=== PATIENT | female | born 1950 | race Asian ===

== ENCOUNTER 2017-10-20 16:36 | Inpatient (IN) | payer MEDICARE, OTHER ==
[~2017-10-20] VITALS: Ht 152.4 cm; Wt 94.9 kg
[~2017-10-20 16:36] MED LIST: ACET-66 PO; ADV500 IH; ALBU0.21 IH; ALBU8.5H8 IH; ALEN70TA2 PO; ASPI-1198 PO; ATOR-2 PO; BISA5TAB96 PO; CARV3.1262 PO; CEFU250T58 PO; CHOL10002 PO; CLOP75 PO; DEXT15LI4 PO; DICL2100G TP; DSSL PO; DULO20CA30 PO; FURO40 PO; FURO40TA5 PO; GABA-531 PO; IBUP-1506 PO; INSLAN SQ; IPRA4AER IH; LORA10TA7 PO; METF10002 PO; MOME17N NASAL; MONT10TA21 PO; NITR.4 SL; NYST30CR9 TP; OMEP20CA4 PO; POTA10TA10 PO; RANO500T3 PO; TIOT185 IH; TRI2560LO TP; [UNRECOGNIZED DRUG - CODE] TP
[2017-10-20 16:53] LABS: GLUCOSE,POINT OF CARE 374 MG/DL (70-110)
[2017-10-20] MEDS ORDERED: LIDO700A15 TP (16:55)
[2017-10-20] MEDS ORDERED: HYDR10TA31 PO (16:55)
[2017-10-20] MEDS ORDERED: PRED10 PO (16:55)
[2017-10-20] MEDS ORDERED: TOPI25 PO (16:55)
[2017-10-20] MEDS ORDERED: LOSA50TA37 PO (16:55)
[2017-10-20] MEDS ORDERED: LINA72CA PO (16:55)
[2017-10-20 18:26] LABS: BASOPHILS % (AUTO) 0.3 % (0.0-2.0); EOSINOPHILS % (AUTO) 0 % (1.0-6.0); HEMATOCRIT 34.1 % (36-46); HEMOGLOBIN 11.3 g/dL (12.0-16.0); LYMPHOCYTES % (AUTO) 10.4 % (22.0-44.0); MEAN CORPUSCULAR HEMOGLOBIN 30.4 pg (26.0-34.0); MEAN CORPUSCULAR HGB CONC 33.3 G/dL (31.0-37.0); MEAN CORPUSCULAR VOLUME 91 fL (80-100); MONOCYTES # (AUTO) 0.9 K/uL (0.1-1.0); NEUTROPHILS # (AUTO) 7.3 K/uL (1.8-7.7); NEUTROPHILS % (AUTO) 79.3 % (40.0-70.0); PLATELET COUNT (AUTO) 367 K/uL (150-450); RED BLOOD CELL COUNT(AUTO) 3.73 MIL/uL (4.00-5.20); RED CELL DISTRIBUTION WIDTH 13.2 % (11.5-14.5)
[2017-10-20 18:39] LABS: ANION GAP 10 mmol/L (8-16); CALCIUM, TOTAL 8.8 mg/dL (8.8-10.5); CARBON DIOXIDE 25 mmol/L (22-29); CHLORIDE 97 mmol/L (98-107); CREATININE 1.36 mg/dL (0.60-1.30); GLOMERULAR FILTR. RATE CALC 39 mL/min (>60); GLUCOSE,RANDOM 377 mg/dL (70-110); POTASSIUM 4.3 mmol/L (3.5-5.1); SODIUM SERUM 132 mmol/L (136-145); UREA NITROGEN, BLOOD 27 mg/dL (7-18)
[2017-10-20 19:08] LABS: ALANINE AMINOTRANSFERASE 25 U/L (12-78); ALBUMIN 3.1 g/dL (3.4-5.0); ALKALINE PHOSPHATASE 100 U/L (46-116); ASPARTATE AMINOTRANSFERASE 18 U/L (15-37); BILIRUBIN,TOTAL 0.3 mg/dL (0.1-1.0); CREATINE KINASE MB 1.5 ng/mL (0-5); CREATINE KINASE, TOTAL 90 U/L (26-192); TOTAL PROTEIN, SERUM 7.4 g/dL (6.4-8.2)
[2017-10-20] MEDS ORDERED: IPRATROPIUM BROMIDE 0.5 MG/2.5 ML NEB SOLUTION NEB ONE (21:00)
[2017-10-20] MEDS ORDERED: ALBUTEROL SULFATE 5 MG/ML 20 ML NEB SOLN [BULK] NEB ONE (21:00)
[2017-10-20] MEDS ORDERED: INSULIN REGULAR, HUMAN 100 UNITS/ML IVP ONE (21:00)
[2017-10-20] MEDS ORDERED: SODIUM CHLORIDE 0.9% 1,000 ML IV ONE ×2 (21:00→22:45)
[2017-10-20 21:18] LABS: GLUCOSE,POINT OF CARE 273 MG/DL (70-110)
[2017-10-20 21:29] LABS: APPEARANCE,URINE CLEAR (CLEAR); BILIRUBIN,URINE NEGATIVE (NEGATIVE); GLUCOSE, URINE (UA) 500 mg/dL (NEGATIVE); KETONES,URINE NEGATIVE (NEGATIVE); LEUKOCYTE ESTERASE ,URINE NEGATIVE (NEGATIVE); NITRATE,URINE NEGATIVE (NEGATIVE); OCCULT BLOOD,URINE NEGATIVE (NEGATIVE); PROTEIN,URINE NEGATIVE (NEGATIVE); UROBILINOGEN,URINE 0.2 mg/dL (<=1.0)
[2017-10-20] MEDS ORDERED: CefTRIAXone 1 GM/DEXTROSE 50 ML IV ONE (21:45)
[2017-10-20] MEDS ORDERED: AZITHROMYCIN 500 MG/NS 250 ML IV ONE (21:45)
[2017-10-20 21:47] LABS: BACTERIA,URINE None Seen /HPF (None Seen); RBC,URINE None Seen /HPF (0-2); RENAL EPITHELIAL CELLS,URINE Few /LPF (None Seen); SQUAMOUS EPITHELIAL CELL,UR Few /LPF (None Seen)
[2017-10-20 22:04] LABS: LACTIC ACID 2.8 mmol/L (0.4-2.0)
[2017-10-20] MEDS ORDERED: 0.9% SODIUM CHLORIDE 5 ML NEB SOLUTION NEB ONE (22:32)
[2017-10-20] MEDS: IPRATROPIUM BROMIDE 0.5 MG/2.5 ML NEB SOLUTION NEB SCH (22:42)
[2017-10-20] MEDS: ALBUTEROL SULFATE 2.5 MG/0.5 ML NEB SOLUTION NEB SCH (22:42)
[2017-10-20] MEDS ORDERED: ONDANSETRON HCL 4 MG/2 ML VIAL IVP PRN (22:45)
[2017-10-20] MEDS ORDERED: 0.9% SODIUM CHLORIDE 10 ML SYRINGE IVP PRN (22:45)
[2017-10-20] MEDS ORDERED: ACETAMINOPHEN 325 MG TABLET PO PRN (22:45)
[2017-10-20 22:59] LABS: INFLUENZA TYPE A NEGATIVE FOR TYPE A (NEGATIVE); INFLUENZA TYPE B NEGATIVE FOR TYPE B (NEGATIVE)
[2017-10-21] MEDS: IPRATROPIUM BROMIDE 0.5 MG/2.5 ML NEB SOLUTION NEB SCH ×2 (03:07→07:34)
[2017-10-21] MEDS: ALBUTEROL SULFATE 2.5 MG/0.5 ML NEB SOLUTION NEB SCH ×2 (03:07→07:34)
[2017-10-21 05:57] LABS: GLUCOSE,POINT OF CARE 192 MG/DL (70-110)
[2017-10-21 06:36] VITALS: BP 120/68
[2017-10-21] MEDS ORDERED: IPRATROPIUM BROMIDE 0.5 MG/2.5 ML NEB SOLUTION NEB ONE ×3 (07:32→17:00)
[2017-10-21] MEDS ORDERED: ALBUTEROL SULFATE 2.5 MG/0.5 ML NEB SOLUTION NEB ONE ×3 (07:32→17:15)
[2017-10-21] MEDS ORDERED: AZITHROMYCIN 500 MG/NS 250 ML IV STA (08:57)
[2017-10-21] MEDS ORDERED: ACETAMINOPHEN 325 MG TABLET PO PRN (09:00)
[2017-10-21] MEDS ORDERED: ALBUTEROL SULFATE 2.5 MG/0.5 ML NEB SOLUTION NEB PRN (09:00)
[2017-10-21] MEDS ORDERED: IPRATROPIUM BROMIDE 0.5 MG/2.5 ML NEB SOLUTION NEB PRN (09:00)
[2017-10-21] MEDS ORDERED: MORPHINE SULFATE 2 MG/ML SYRINGE IVP PRN (09:00)
[2017-10-21] MEDS ORDERED: ENOXAPARIN SODIUM 40 MG/0.4 ML PF SYRINGE SQ SCH (09:00)
[2017-10-21] MEDS ORDERED: CefTRIAXone 1 GM/DEXTROSE 50 ML IV SCH (09:00)
[2017-10-21 09:45] LABS: BASOPHILS % (AUTO) 0.7 % (0.0-2.0); EOSINOPHILS % (AUTO) 0 % (1.0-6.0); HEMATOCRIT 31.7 % (36-46); HEMOGLOBIN 10.7 g/dL (12.0-16.0); LYMPHOCYTES # (AUTO) 1.3 K/uL (1.0-4.8); LYMPHOCYTES % (AUTO) 15.1 % (22.0-44.0); MEAN CORPUSCULAR HEMOGLOBIN 30.7 pg (26.0-34.0); MEAN CORPUSCULAR HGB CONC 33.7 G/dL (31.0-37.0); MEAN CORPUSCULAR VOLUME 91 fL (80-100); MONOCYTES # (AUTO) 0.9 K/uL (0.1-1.0); MONOCYTES % (AUTO) 10.8 % (2.0-9.0); NEUTROPHILS # (AUTO) 6.3 K/uL (1.8-7.7); NEUTROPHILS % (AUTO) 73.4 % (40.0-70.0); PLATELET COUNT (AUTO) 340 K/uL (150-450); RED BLOOD CELL COUNT(AUTO) 3.48 MIL/uL (4.00-5.20); RED CELL DISTRIBUTION WIDTH 13.5 % (11.5-14.5)
[2017-10-21 09:52] LABS: INR 1.1 (0.9-1.1); PROTHROMBIN TIME 11.4 SEC (9.4-11.6)
[2017-10-21 10:03] LABS: ALBUMIN 2.7 g/dL (3.4-5.0); BILIRUBIN,TOTAL 0.2 mg/dL (0.1-1.0); C-REACTIVE PROTEIN QUANT 1.21 mg/dL (0.00-0.30); CALCIUM, TOTAL 8.1 mg/dL (8.8-10.5); CREATININE 1.1 mg/dL (0.60-1.30); TOTAL PROTEIN, SERUM 6.6 g/dL (6.4-8.2)
[2017-10-21] MEDS: ENOXAPARIN SODIUM 40 MG/0.4 ML PF SYRINGE SQ SCH (10:05)
[2017-10-21 10:19] VITALS: BP 129/56
[2017-10-21 10:21] LABS: POTASSIUM 3.5 mmol/L (3.5-5.1)
[2017-10-21] MEDS ORDERED: MethylPREDNISolone SOD SUCC 125 MG/2 ML VIAL IVP ONE (10:45)
[2017-10-21 10:56] LABS: ERYTHROCYTE SEDIMENTATION RATE 62 MM/HR (0-20)
[2017-10-21] MEDS ORDERED: LINA145C PO (11:00)
[2017-10-21] MEDS ORDERED: DSS100 PO (11:00)
[2017-10-21] MEDS ORDERED: NITROGLYCERIN 0.4 MG SUBLINGUAL TABLET #25 SL PRN (12:00)
[2017-10-21] MEDS ORDERED: DEXTROSE 50%-WATER 25 GM/50 ML SYRINGE IVP PRN (12:00)
[2017-10-21 12:33] LABS: GLUCOSE,POINT OF CARE 243 MG/DL (70-110)
[2017-10-21 14:19] VITALS: BP 129/70
[2017-10-21] MEDS: DICLOFENAC SODIUM 1% 100 GM GEL [2GM] TP SCH ×3 (14:25→20:42)
[2017-10-21] MEDS: HYDROCODONE/ACETAMINOPHEN 5-325 MG TABLET PO PRN ×2 (14:43→18:59)
[2017-10-21] MEDS: IPRATROPIUM BROMIDE 0.5 MG/2.5 ML NEB SOLUTION NEB PRN (15:28)
[2017-10-21] MEDS: ALBUTEROL SULFATE 2.5 MG/0.5 ML NEB SOLUTION NEB PRN (15:28)
[2017-10-21] MEDS ORDERED: 0.9% SODIUM CHLORIDE 5 ML NEB SOLUTION NEB ONE (17:06)
[2017-10-21 18:19] VITALS: BP 129/62
[2017-10-21 18:42] LABS: GLUCOSE,POINT OF CARE 387 MG/DL (70-110)
[2017-10-21] MEDS: MetFORMIN HCL 500 MG TABLET PO SCH (18:57)
[2017-10-21] MEDS: GuaiFENesin/D-METHORPHAN [SUGAR-FREE] 200-20MG/10 ML SYRUP UDCUP PO PRN (18:58)
[2017-10-21] MEDS: MethylPREDNISolone SOD SUCC 125 MG/2 ML VIAL IVP SCH (19:10)
[2017-10-21] MEDS: INSULIN ASPART 100 UNITS/ML SQ PRN (19:12)
[2017-10-21] MEDS: CefTRIAXone 1 GM/DEXTROSE 50 ML IV SCH (20:40)
[2017-10-21] MEDS: CARVEDILOL 3.125 MG TABLET PO SCH (20:40)
[2017-10-21] MEDS: DOCUSATE SODIUM 100 MG CAPSULE PO SCH (20:40)
[2017-10-21] MEDS: GABAPENTIN 300 MG CAPSULE PO SCH (20:41)
[2017-10-21] MEDS: RANOLAZINE 500 MG SR TABLET PO SCH (20:41)
[2017-10-21] MEDS: TOPIRAMATE 25 MG TABLET PO SCH (20:41)
[2017-10-21] MEDS: INSULIN GLARGINE,HUM.REC.ANLOG 100 UNITS/ML SQ SCH (21:36)
[2017-10-21] MEDS: AZITHROMYCIN 500 MG/NS 250 ML IV SCH (21:38)
[2017-10-21 21:43] LABS: GLUCOSE,POINT OF CARE 422 MG/DL (70-110)
[2017-10-21] MEDS ORDERED: INSULIN ASPART 100 UNITS/ML SQ ONE (22:00)
[2017-10-21 22:31] VITALS: BP 144/56
[2017-10-22] VITALS (8 sets, daily range): BP systolic 110–149; BP diastolic 40–55
[2017-10-22] MEDS: MethylPREDNISolone SOD SUCC 125 MG/2 ML VIAL IVP SCH ×4 (00:58→20:42)
[2017-10-22] MEDS: GuaiFENesin/D-METHORPHAN [SUGAR-FREE] 200-20MG/10 ML SYRUP UDCUP PO PRN (01:39)
[2017-10-22] MEDS: LINACLOTIDE 145 MCG CAPSULE PO SCH (06:31)
[2017-10-22 08:30] LABS: BASOPHILS # (AUTO) 0.01 K/uL (0.00-0.20); BASOPHILS % (AUTO) 0.2 % (0.0-2.0); EOSINOPHILS % (AUTO) 0 % (1.0-6.0); HEMOGLOBIN 10.8 g/dL (12.0-16.0); LYMPHOCYTES # (AUTO) 0.8 K/uL (1.0-4.8); LYMPHOCYTES % (AUTO) 11.6 % (22.0-44.0); MEAN CORPUSCULAR HEMOGLOBIN 30.2 pg (26.0-34.0); MEAN CORPUSCULAR HGB CONC 32.7 G/dL (31.0-37.0); MEAN CORPUSCULAR VOLUME 92 fL (80-100); MONOCYTES # (AUTO) 0.3 K/uL (0.1-1.0); MONOCYTES % (AUTO) 3.7 % (2.0-9.0); NEUTROPHILS # (AUTO) 6.1 K/uL (1.8-7.7); NEUTROPHILS % (AUTO) 84.5 % (40.0-70.0); PLATELET COUNT (AUTO) 338 K/uL (150-450); RED BLOOD CELL COUNT(AUTO) 3.58 MIL/uL (4.00-5.20); RED CELL DISTRIBUTION WIDTH 13.1 % (11.5-14.5)
[2017-10-22 08:36] LABS: CALCIUM, TOTAL 8.6 mg/dL (8.8-10.5); CREATININE 1.02 mg/dL (0.60-1.30); MAGNESIUM 2.4 mg/dL (1.80-2.40); POTASSIUM 4.3 mmol/L (3.5-5.1)
[2017-10-22] MEDS: INSULIN GLARGINE,HUM.REC.ANLOG 100 UNITS/ML SQ SCH ×2 (09:00→22:32)
[2017-10-22 09:18] LABS: GLUCOSE,POINT OF CARE 275 MG/DL (70-110)
[2017-10-22] MEDS: TIOTROPIUM BROMIDE 18 MCG/INH HANDIHALER [5] IH SCH (09:57)
[2017-10-22] MEDS: FLUTICASONE/VILANTEROL 100-25 MCG/INH INHALER [14] IH SCH (09:57)
[2017-10-22] MEDS: MOMETASONE FUROATE 50 MCG/SPRAY 17 GM NASAL SPRAY NASAL SCH (09:58)
[2017-10-22] MEDS: RANOLAZINE 500 MG SR TABLET PO SCH (10:00)
[2017-10-22] MEDS: CARVEDILOL 3.125 MG TABLET PO SCH ×2 (10:01→22:28)
[2017-10-22] MEDS: MONTELUKAST SODIUM 10 MG TABLET PO SCH (10:02)
[2017-10-22] MEDS: MetFORMIN HCL 500 MG TABLET PO SCH ×2 (10:02→17:33)
[2017-10-22] MEDS: CLOPIDOGREL BISULFATE 75 MG TABLET PO SCH (10:03)
[2017-10-22] MEDS: FUROSEMIDE 40 MG TABLET PO SCH (10:03)
[2017-10-22] MEDS: LOSARTAN POTASSIUM 50 MG TABLET PO SCH (10:05)
[2017-10-22] MEDS: GABAPENTIN 300 MG CAPSULE PO SCH (10:05)
[2017-10-22] MEDS: HydrALAZINE HCL 10 MG TABLET PO SCH (10:06)
[2017-10-22] MEDS: DULoxetine HCL 20 MG CAPSULE PO SCH (10:06)
[2017-10-22] MEDS: ATORVASTATIN CALCIUM 40 MG TABLET PO SCH (10:06)
[2017-10-22] MEDS: DOCUSATE SODIUM 100 MG CAPSULE PO SCH ×2 (10:07→22:29)
[2017-10-22] MEDS: ASPIRIN 81 MG CHEWABLE TABLET PO SCH (10:07)
[2017-10-22] MEDS: LIDOCAINE HCL 5% TRANSDERMAL PATCH TD SCH (10:09)
[2017-10-22] MEDS: DICLOFENAC SODIUM 1% 100 GM GEL [2GM] TP SCH ×4 (10:14→22:41)
[2017-10-22] MEDS: ENOXAPARIN SODIUM 40 MG/0.4 ML PF SYRINGE SQ SCH (10:16)
[2017-10-22 12:48] LABS: GLUCOSE,POINT OF CARE 345 MG/DL (70-110)
[2017-10-22 16:02] LABS: GLUCOSE,POINT OF CARE 347 MG/DL (70-110)
[2017-10-22] MEDS: INSULIN ASPART 100 UNITS/ML SQ PRN (16:03)
[2017-10-22 17:17] LABS: GLUCOSE,POINT OF CARE 246 MG/DL (70-110)
[2017-10-22 21:33] LABS: GLUCOSE,POINT OF CARE 198 MG/DL (70-110)
[2017-10-22] MEDS: TOPIRAMATE 25 MG TABLET PO SCH (22:28)
[2017-10-22] MEDS: -LIDODERM PATCH NOTE- MISC SCH (22:29)
[2017-10-22] MEDS: AZITHROMYCIN 500 MG/NS 250 ML IV SCH (22:41)
[2017-10-22] MEDS: CefTRIAXone 1 GM/DEXTROSE 50 ML IV SCH (22:41)
[2017-10-23] VITALS (7 sets, daily range): BP systolic 103–154; BP diastolic 44–80
[2017-10-23] MEDS: GABAPENTIN 300 MG CAPSULE PO SCH ×3 (00:01→23:38)
[2017-10-23] MEDS: RANOLAZINE 500 MG SR TABLET PO SCH ×2 (00:01→11:09)
[2017-10-23] MEDS: MethylPREDNISolone SOD SUCC 125 MG/2 ML VIAL IVP SCH ×4 (00:30→19:40)
[2017-10-23] MEDS: GuaiFENesin/D-METHORPHAN [SUGAR-FREE] 200-20MG/10 ML SYRUP UDCUP PO PRN (00:36)
[2017-10-23] MEDS ORDERED: 0.9% SODIUM CHLORIDE 5 ML NEB SOLUTION NEB ONE (01:33)
[2017-10-23] MEDS: IPRATROPIUM BROMIDE 0.5 MG/2.5 ML NEB SOLUTION NEB PRN ×4 (01:37→23:48)
[2017-10-23] MEDS: ALBUTEROL SULFATE 2.5 MG/0.5 ML NEB SOLUTION NEB PRN ×4 (01:38→23:48)
[2017-10-23 06:21] LABS: BASOPHILS % (AUTO) 0.1 % (0.0-2.0); EOSINOPHILS % (AUTO) 0 % (1.0-6.0); HEMATOCRIT 32.5 % (36-46); HEMOGLOBIN 10.9 g/dL (12.0-16.0); LYMPHOCYTES # (AUTO) 0.9 K/uL (1.0-4.8); LYMPHOCYTES % (AUTO) 10.4 % (22.0-44.0); MEAN CORPUSCULAR HEMOGLOBIN 30.4 pg (26.0-34.0); MEAN CORPUSCULAR HGB CONC 33.6 G/dL (31.0-37.0); MEAN CORPUSCULAR VOLUME 90 fL (80-100); MONOCYTES # (AUTO) 0.3 K/uL (0.1-1.0); MONOCYTES % (AUTO) 3.8 % (2.0-9.0); NEUTROPHILS # (AUTO) 7.6 K/uL (1.8-7.7); PLATELET COUNT (AUTO) 348 K/uL (150-450); RED CELL DISTRIBUTION WIDTH 13.3 % (11.5-14.5)
[2017-10-23 06:38] LABS: CALCIUM, TOTAL 8.3 mg/dL (8.8-10.5); CREATININE 1.19 mg/dL (0.60-1.30)
[2017-10-23] MEDS: LINACLOTIDE 145 MCG CAPSULE PO SCH (06:38)
[2017-10-23 06:44] LABS: NEUTROPHILS % (AUTO) 85.7 % (40.0-70.0)
[2017-10-23 07:02] LABS: GLUCOSE,POINT OF CARE 257 MG/DL (70-110)
[2017-10-23] MEDS: INSULIN ASPART 100 UNITS/ML SQ PRN ×2 (07:30→11:15)
[2017-10-23] MEDS: HydrALAZINE HCL 10 MG TABLET PO SCH (09:00)
[2017-10-23] MEDS: DOCUSATE SODIUM 100 MG CAPSULE PO SCH ×2 (09:00→23:38)
[2017-10-23 09:52] LABS: GLUCOSE,POINT OF CARE 268 MG/DL (70-110)
[2017-10-23] MEDS: MONTELUKAST SODIUM 10 MG TABLET PO SCH (10:58)
[2017-10-23] MEDS: DULoxetine HCL 20 MG CAPSULE PO SCH (10:58)
[2017-10-23] MEDS: TIOTROPIUM BROMIDE 18 MCG/INH HANDIHALER [5] IH SCH ×2 (10:59→11:05)
[2017-10-23] MEDS: LOSARTAN POTASSIUM 50 MG TABLET PO SCH (10:59)
[2017-10-23] MEDS: CARVEDILOL 3.125 MG TABLET PO SCH ×2 (11:01→23:38)
[2017-10-23] MEDS: ASPIRIN 81 MG CHEWABLE TABLET PO SCH (11:01)
[2017-10-23] MEDS: ATORVASTATIN CALCIUM 40 MG TABLET PO SCH (11:02)
[2017-10-23] MEDS: MetFORMIN HCL 500 MG TABLET PO SCH ×2 (11:03→19:22)
[2017-10-23] MEDS: CLOPIDOGREL BISULFATE 75 MG TABLET PO SCH (11:04)
[2017-10-23] MEDS: FUROSEMIDE 40 MG TABLET PO SCH (11:04)
[2017-10-23] MEDS: MOMETASONE FUROATE 50 MCG/SPRAY 17 GM NASAL SPRAY NASAL SCH (11:05)
[2017-10-23] MEDS: DICLOFENAC SODIUM 1% 100 GM GEL [2GM] TP SCH ×3 (11:05→16:30)
[2017-10-23] MEDS: FLUTICASONE/VILANTEROL 100-25 MCG/INH INHALER [14] IH SCH (11:05)
[2017-10-23] MEDS: LIDOCAINE HCL 5% TRANSDERMAL PATCH TD SCH (11:06)
[2017-10-23] MEDS: INSULIN GLARGINE,HUM.REC.ANLOG 100 UNITS/ML SQ SCH ×2 (11:14→23:57)
[2017-10-23] MEDS: ENOXAPARIN SODIUM 40 MG/0.4 ML PF SYRINGE SQ SCH (11:44)
[2017-10-23 11:53] LABS: GLUCOSE,POINT OF CARE 211 MG/DL (70-110)
[2017-10-23 17:53] LABS: GLUCOSE,POINT OF CARE 167 MG/DL (70-110)
[2017-10-23] MEDS: BENZONATATE 100 MG CAPSULE PO SCH (19:39)
[2017-10-23 20:23] LABS: GLUCOSE,POINT OF CARE 249 MG/DL (70-110)
[2017-10-23] MEDS: -LIDODERM PATCH NOTE- MISC SCH (21:00)
[2017-10-23] MEDS: BUDESONIDE 0.5 MG/2 ML NEB SOLUTION NEB SCH (21:00)
[2017-10-24] MEDS: TOPIRAMATE 25 MG TABLET PO SCH ×2 (00:19→23:31)
[2017-10-24] MEDS: DICLOFENAC SODIUM 1% 100 GM GEL [2GM] TP SCH ×5 (00:19→23:44)
[2017-10-24] MEDS: MethylPREDNISolone SOD SUCC 125 MG/2 ML VIAL IVP SCH ×5 (00:20→23:32)
[2017-10-24] MEDS ORDERED: SODIUM CHLORIDE 0.9% 250 ML IV ONE (00:36)
[2017-10-24] MEDS: RANOLAZINE 500 MG SR TABLET PO SCH ×3 (00:38→21:25)
[2017-10-24] MEDS: AZITHROMYCIN 500 MG/NS 250 ML IV SCH ×2 (00:48→22:58)
[2017-10-24] MEDS: BENZONATATE 100 MG CAPSULE PO SCH ×4 (02:58→23:50)
[2017-10-24] MEDS: CefTRIAXone 1 GM/DEXTROSE 50 ML IV SCH ×2 (02:59→21:17)
[2017-10-24 04:13] VITALS: BP 139/60
[2017-10-24] MEDS: IPRATROPIUM BROMIDE 0.5 MG/2.5 ML NEB SOLUTION NEB PRN ×5 (04:13→20:15)
[2017-10-24] MEDS: ALBUTEROL SULFATE 2.5 MG/0.5 ML NEB SOLUTION NEB PRN ×5 (04:13→20:15)
[2017-10-24] MEDS: INSULIN ASPART 100 UNITS/ML SQ PRN ×2 (06:24→18:34)
[2017-10-24 07:21] LABS: CREATININE 1.11 mg/dL (0.60-1.30); MAGNESIUM 2.4 mg/dL (1.80-2.40); POTASSIUM 3.6 mmol/L (3.5-5.1)
[2017-10-24 07:31] LABS: BASOPHILS % (AUTO) 0.2 % (0.0-2.0); EOSINOPHILS % (AUTO) 0 % (1.0-6.0); HEMATOCRIT 32.8 % (36-46); HEMOGLOBIN 10.9 g/dL (12.0-16.0); LYMPHOCYTES % (AUTO) 12.2 % (22.0-44.0); MEAN CORPUSCULAR HGB CONC 33.1 G/dL (31.0-37.0); MEAN CORPUSCULAR VOLUME 91 fL (80-100); MONOCYTES # (AUTO) 0.5 K/uL (0.1-1.0); MONOCYTES % (AUTO) 6.6 % (2.0-9.0); NEUTROPHILS # (AUTO) 6.5 K/uL (1.8-7.7); PLATELET COUNT (AUTO) 362 K/uL (150-450); RED BLOOD CELL COUNT(AUTO) 3.62 MIL/uL (4.00-5.20)
[2017-10-24 07:54] VITALS: BP 140/64
[2017-10-24] MEDS: BUDESONIDE 0.5 MG/2 ML NEB SOLUTION NEB SCH ×2 (08:16→20:15)
[2017-10-24] MEDS: MetFORMIN HCL 500 MG TABLET PO SCH ×2 (08:30→17:05)
[2017-10-24] MEDS: ATORVASTATIN CALCIUM 40 MG TABLET PO SCH (08:30)
[2017-10-24] MEDS: LOSARTAN POTASSIUM 50 MG TABLET PO SCH (08:31)
[2017-10-24] MEDS: CARVEDILOL 3.125 MG TABLET PO SCH ×2 (08:31→21:26)
[2017-10-24] MEDS: DOCUSATE SODIUM 100 MG CAPSULE PO SCH ×2 (08:31→21:00)
[2017-10-24] MEDS: ASPIRIN 81 MG CHEWABLE TABLET PO SCH (08:31)
[2017-10-24] MEDS: FUROSEMIDE 40 MG TABLET PO SCH (08:31)
[2017-10-24] MEDS: GABAPENTIN 300 MG CAPSULE PO SCH ×2 (08:31→21:26)
[2017-10-24] MEDS: MONTELUKAST SODIUM 10 MG TABLET PO SCH (08:31)
[2017-10-24] MEDS: MOMETASONE FUROATE 50 MCG/SPRAY 17 GM NASAL SPRAY NASAL SCH (08:32)
[2017-10-24] MEDS: FLUTICASONE/VILANTEROL 100-25 MCG/INH INHALER [14] IH SCH (08:32)
[2017-10-24] MEDS: LINACLOTIDE 145 MCG CAPSULE PO SCH (08:32)
[2017-10-24] MEDS: INSULIN GLARGINE,HUM.REC.ANLOG 100 UNITS/ML SQ SCH ×2 (08:34→21:00)
[2017-10-24] MEDS: ENOXAPARIN SODIUM 40 MG/0.4 ML PF SYRINGE SQ SCH (08:38)
[2017-10-24] MEDS: HydrALAZINE HCL 10 MG TABLET PO SCH (09:55)
[2017-10-24] MEDS: LIDOCAINE HCL 5% TRANSDERMAL PATCH TD SCH (09:55)
[2017-10-24] MEDS: DULoxetine HCL 20 MG CAPSULE PO SCH (09:56)
[2017-10-24] MEDS: CLOPIDOGREL BISULFATE 75 MG TABLET PO SCH (09:56)
[2017-10-24 11:29] VITALS: BP 138/63
[2017-10-24 11:44] LABS: GLUCOMETER DEV NAME(LOC) 5N 1M; GLUCOSE,POINT OF CARE 172 MG/DL (70-110)
[2017-10-24 11:44] LABS: GLUCOMETER DEV NAME(LOC) 5N 1M; GLUCOSE,POINT OF CARE 158 MG/DL (70-110)
[2017-10-24 16:05] VITALS: BP 130/63
[2017-10-24 17:18] LABS: GLUCOMETER DEV NAME(LOC) 5N 1M; GLUCOSE,POINT OF CARE 197 MG/DL (70-110)
[2017-10-24 19:18] LABS: GLUCOMETER DEV NAME(LOC) 5S 2N; GLUCOSE,POINT OF CARE 208 MG/DL (70-110)
[2017-10-24 19:40] VITALS: BP 149/71
[2017-10-24] MEDS: -LIDODERM PATCH NOTE- MISC SCH (21:00)
[2017-10-24 23:30] VITALS: BP 142/63
[2017-10-25 04:27] VITALS: BP 136/55
[2017-10-25] MEDS: LINACLOTIDE 145 MCG CAPSULE PO SCH ×3 (06:10→06:20)
[2017-10-25] MEDS: MethylPREDNISolone SOD SUCC 125 MG/2 ML VIAL IVP SCH ×2 (06:10→12:15)
[2017-10-25 06:45] LABS: BASOPHILS % (AUTO) 0.2 % (0.0-2.0); EOSINOPHILS % (AUTO) 0 % (1.0-6.0); HEMATOCRIT 33.1 % (36-46); HEMOGLOBIN 11.1 g/dL (12.0-16.0); LYMPHOCYTES # (AUTO) 0.8 K/uL (1.0-4.8); MEAN CORPUSCULAR HEMOGLOBIN 30.3 pg (26.0-34.0); MEAN CORPUSCULAR HGB CONC 33.4 G/dL (31.0-37.0); MEAN CORPUSCULAR VOLUME 91 fL (80-100); MONOCYTES # (AUTO) 0.5 K/uL (0.1-1.0); MONOCYTES % (AUTO) 7.3 % (2.0-9.0); NEUTROPHILS # (AUTO) 5.9 K/uL (1.8-7.7); NEUTROPHILS % (AUTO) 81.5 % (40.0-70.0); PLATELET COUNT (AUTO) 334 K/uL (150-450); RED BLOOD CELL COUNT(AUTO) 3.65 MIL/uL (4.00-5.20); RED CELL DISTRIBUTION WIDTH 13.1 % (11.5-14.5)
[2017-10-25 07:15] VITALS: BP 126/48
[2017-10-25] MEDS: IPRATROPIUM BROMIDE 0.5 MG/2.5 ML NEB SOLUTION NEB PRN (08:12)
[2017-10-25] MEDS: BUDESONIDE 0.5 MG/2 ML NEB SOLUTION NEB SCH (08:12)
[2017-10-25] MEDS: ALBUTEROL SULFATE 2.5 MG/0.5 ML NEB SOLUTION NEB PRN (08:12)
[2017-10-25 08:20] LABS: CALCIUM, TOTAL 7.9 mg/dL (8.8-10.5); CREATININE 1.1 mg/dL (0.60-1.30); MAGNESIUM 2.6 mg/dL (1.80-2.40); POTASSIUM 3.5 mmol/L (3.5-5.1)
[2017-10-25] MEDS: DOCUSATE SODIUM 100 MG CAPSULE PO SCH (09:00)
[2017-10-25] MEDS: MetFORMIN HCL 500 MG TABLET PO SCH (09:52)
[2017-10-25] MEDS: BENZONATATE 100 MG CAPSULE PO SCH (09:53)
[2017-10-25] MEDS: LOSARTAN POTASSIUM 50 MG TABLET PO SCH (09:53)
[2017-10-25] MEDS: MONTELUKAST SODIUM 10 MG TABLET PO SCH (09:53)
[2017-10-25] MEDS: GABAPENTIN 300 MG CAPSULE PO SCH (09:53)
[2017-10-25] MEDS: CLOPIDOGREL BISULFATE 75 MG TABLET PO SCH (09:53)
[2017-10-25] MEDS: FUROSEMIDE 40 MG TABLET PO SCH (09:54)
[2017-10-25] MEDS: FLUTICASONE/VILANTEROL 100-25 MCG/INH INHALER [14] IH SCH (09:54)
[2017-10-25] MEDS: ATORVASTATIN CALCIUM 40 MG TABLET PO SCH (09:54)
[2017-10-25] MEDS: MOMETASONE FUROATE 50 MCG/SPRAY 17 GM NASAL SPRAY NASAL SCH (09:54)
[2017-10-25] MEDS: CARVEDILOL 3.125 MG TABLET PO SCH (09:54)
[2017-10-25] MEDS: ASPIRIN 81 MG CHEWABLE TABLET PO SCH (09:54)
[2017-10-25] MEDS: RANOLAZINE 500 MG SR TABLET PO SCH (09:55)
[2017-10-25] MEDS: ENOXAPARIN SODIUM 40 MG/0.4 ML PF SYRINGE SQ SCH (09:55)
[2017-10-25] MEDS: HydrALAZINE HCL 10 MG TABLET PO SCH (09:56)
[2017-10-25] MEDS: DULoxetine HCL 20 MG CAPSULE PO SCH (09:56)
[2017-10-25] MEDS: LIDOCAINE HCL 5% TRANSDERMAL PATCH TD SCH (09:57)
[2017-10-25] MEDS: DICLOFENAC SODIUM 1% 100 GM GEL [2GM] TP SCH ×2 (09:57→13:00)
[2017-10-25] MEDS: INSULIN GLARGINE,HUM.REC.ANLOG 100 UNITS/ML SQ SCH (10:13)
[2017-10-25 10:59] VITALS: BP 154/72
[2017-10-25] MEDS: INSULIN ASPART 100 UNITS/ML SQ PRN (12:15)
[2017-10-25] MEDS ORDERED: PRED10TA3 PO (13:00)
[2017-10-25] MEDS ORDERED: AMOX1TAB16 PO (13:07)
[2017-10-26 22:33] LABS: GLUCOMETER DEV NAME(LOC) 5S 1L; GLUCOSE,POINT OF CARE 214 MG/DL (70-110)
[2017-10-26 22:34] LABS: GLUCOMETER DEV NAME(LOC) 5S 1L; GLUCOSE,POINT OF CARE 106 MG/DL (70-110)
[2017-10-26 22:34] LABS: GLUCOMETER DEV NAME(LOC) 5S 1L; GLUCOSE,POINT OF CARE 149 MG/DL (70-110)
[2017-10-26 22:34] LABS: GLUCOMETER DEV NAME(LOC) 5S 1L; GLUCOSE,POINT OF CARE 167 MG/DL (70-110)
[2017-10-27 15:15] LABS: LEGIONELLA PNEUMO AG URINE Negative (Negative); ORGANISM ID Not indicated.; S PNEUMO SOURCE Urine; STREP PNEUMONIAE AG URINE Negative (Negative); STREP.PNEUMO BODY FLUID CULT. Not Indicated
[2017-10-28] MEDS ORDERED: ALENDRONATE SODIUM 70 MG TABLET PO SCH (06:30)
== END 2017-10-25 14:08 | disposition home or self-care (01) | DRG 871 ==
LOC: EMS 16:37 → AHU 10-21 05:00 → 5S 10-21 14:42 → AHU 10-21 15:50 → ICUN 10-21 20:54 → 5S 10-23 22:30 → 5N 10-24 05:06
PROVIDERS: ADMIT Hospitalist; ATTEND Hospitalist
DX: A41.9 Sepsis, unspecified organism (principal); J18.9 Pneumonia, unspecified organism; E11.22 Type 2 diabetes mellitus with diabetic chronic kidney disease; I13.0 Hypertensive heart and chronic kidney disease with heart failure and stage 1 through stage 4 chronic kidney disease, or unspecified chronic kidney disease; J44.0 Chronic obstructive pulmonary disease with (acute) lower respiratory infection; I50.9 Heart failure, unspecified; E66.01 Morbid (severe) obesity due to excess calories; J45.901 Unspecified asthma with (acute) exacerbation; Z68.41 Body mass index [BMI] 40.0-44.9, adult; J44.1 Chronic obstructive pulmonary disease with (acute) exacerbation; E11.65 Type 2 diabetes mellitus with hyperglycemia; J20.8 Acute bronchitis due to other specified organisms; N18.3 Chronic kidney disease, stage 3 (moderate); M19.90 Unspecified osteoarthritis, unspecified site; E78.00 Pure hypercholesterolemia, unspecified; I25.10 Atherosclerotic heart disease of native coronary artery without angina pectoris; Z90.710 Acquired absence of both cervix and uterus; I25.2 Old myocardial infarction; Z82.49 Family history of ischemic heart disease and other diseases of the circulatory system; Z83.3 Family history of diabetes mellitus; Z95.5 Presence of coronary angioplasty implant and graft; Z79.899 Other long term (current) drug therapy
CPT/HCPCS: 71250; 82948; 82962; 83605; 83735; 85651; 86140; 87040; 87449; 87804; 87899; 93005; 94640; 94644; 96361; 96374; 96375; 99285; J0456; J0696; J1650; J1815; J2270; J2930; J7030; J7050

== ENCOUNTER → 2018-05-18 | Outpatient (CLI) | payer MEDICARE, OTHER ==
[~2018-05-18] MED LIST changes: -ACET-66 PO; +AMOX1TAB16 PO; -CEFU250T58 PO; +DSS100 PO; -DSSL PO; -FURO40 PO; +HYDR10TA31 PO; +LIDO700A15 TP; +LINA145C PO; +LOSA50TA37 PO; -METF10002 PO; +METF10004 PO; -NYST30CR9 TP; +PRED10TA3 PO; +TOPI25 PO; -[UNRECOGNIZED DRUG - CODE] TP
== END | disposition home or self-care (01) ==
LOC: RADPV 10:46
PROVIDERS: ATTEND Internal Medicine Cardiovascular Disease
DX: I34.0 Nonrheumatic mitral (valve) insufficiency (principal); I25.10 Atherosclerotic heart disease of native coronary artery without angina pectoris; I11.0 Hypertensive heart disease with heart failure; I50.9 Heart failure, unspecified; E78.00 Pure hypercholesterolemia, unspecified; J44.9 Chronic obstructive pulmonary disease, unspecified; K21.9 Gastro-esophageal reflux disease without esophagitis; E11.9 Type 2 diabetes mellitus without complications
CPT/HCPCS: 93306

== ENCOUNTER → 2018-07-06 | Outpatient (CLI) | payer MEDICARE, OTHER ==
[~2018-07-06] VITALS: Ht 152.4 cm; Wt 86.0 kg
[~2018-07-06] MED LIST changes: -AMOX1TAB16 PO; -DEXT15LI4 PO; +LEVO500 PO; +LOSA50TA25 PO; -LOSA50TA37 PO; +METF-446 PO; -METF10004 PO; +PRED10 PO; -PRED10TA3 PO; +PRED20 PO; +PRED5 PO
[2018-07-06 13:37] VITALS: BP 130/64
== END | disposition home or self-care (01) ==
LOC: SRCNTR 13:34
PROVIDERS: ATTEND Internal Medicine Critical Care Medicine
DX: J44.1 Chronic obstructive pulmonary disease with (acute) exacerbation (principal); I11.0 Hypertensive heart disease with heart failure; E78.00 Pure hypercholesterolemia, unspecified; E66.01 Morbid (severe) obesity due to excess calories; I25.10 Atherosclerotic heart disease of native coronary artery without angina pectoris; E11.9 Type 2 diabetes mellitus without complications; Z95.5 Presence of coronary angioplasty implant and graft
CPT/HCPCS: G0463

== ENCOUNTER → 2018-07-11 | Outpatient (CLI) | payer MEDICARE, OTHER ==
[~2018-07-11] MED LIST changes: -LEVO500 PO; -PRED10 PO; -PRED20 PO; -PRED5 PO
[2018-07-11 16:42] LABS: BASOPHILS % (AUTO) 0.6 % (0.0-2.0); EOSINOPHILS % (AUTO) 0.1 % (1.0-6.0); HEMOGLOBIN 12.6 g/dL (12.0-16.0); LYMPHOCYTES # (AUTO) 2.3 K/uL (1.0-4.8); LYMPHOCYTES % (AUTO) 26.6 % (22.0-44.0); MEAN CORPUSCULAR HEMOGLOBIN 30.3 pg (26.0-34.0); MEAN CORPUSCULAR HGB CONC 33.2 G/dL (31.0-37.0); MEAN CORPUSCULAR VOLUME 91 fL (80-100); MONOCYTES # (AUTO) 0.7 K/uL (0.1-1.0); MONOCYTES % (AUTO) 8.2 % (2.0-9.0); NEUTROPHILS # (AUTO) 5.5 K/uL (1.8-7.7); NEUTROPHILS % (AUTO) 64.5 % (40.0-70.0); PLATELET COUNT (AUTO) 316 K/uL (150-450); RED BLOOD CELL COUNT(AUTO) 4.16 MIL/uL (4.00-5.20); RED CELL DISTRIBUTION WIDTH 15.2 % (11.5-14.5)
== END | disposition home or self-care (01) ==
LOC: LABPV 14:55
PROVIDERS: ATTEND Internal Medicine Critical Care Medicine
DX: J45.909 Unspecified asthma, uncomplicated (principal); I11.0 Hypertensive heart disease with heart failure; I50.9 Heart failure, unspecified; I25.10 Atherosclerotic heart disease of native coronary artery without angina pectoris; K21.9 Gastro-esophageal reflux disease without esophagitis

== ENCOUNTER → 2018-08-14 | Outpatient (CLI) | payer MEDICARE, OTHER | END | disposition home or self-care (01) | LOC: RESP 10:56 | PROVIDERS: ATTEND Internal Medicine Critical Care Medicine | DX: J44.9 Chronic obstructive pulmonary disease, unspecified (principal) | CPT/HCPCS: 94010; 94726; 94727; 94729 ==

== ENCOUNTER → 2018-08-17 | Outpatient (CLI) | payer MEDICARE, OTHER ==
[~2018-08-17] VITALS: Ht 152.4 cm; Wt 85.0 kg
[2018-08-17 15:21] VITALS: BP 141/64
== END | disposition home or self-care (01) ==
LOC: SRCNTR 14:12
PROVIDERS: ATTEND Internal Medicine Critical Care Medicine
DX: J44.1 Chronic obstructive pulmonary disease with (acute) exacerbation (principal); E78.00 Pure hypercholesterolemia, unspecified; E66.01 Morbid (severe) obesity due to excess calories; I11.0 Hypertensive heart disease with heart failure; I50.30 Unspecified diastolic (congestive) heart failure; E11.9 Type 2 diabetes mellitus without complications; Z95.5 Presence of coronary angioplasty implant and graft
CPT/HCPCS: G0463

== ENCOUNTER → 2018-11-20 | Outpatient (CLI) | payer MEDICARE, OTHER ==
[~2018-11-20] VITALS: Ht 154.9 cm; Wt 85.0 kg
[~2018-11-20] MED LIST changes: -CLOP75 PO; +CLOP75TA17 PO; -LOSA50TA25 PO; +LOSA50TA64 PO
[2018-11-20 10:00] VITALS: BP 150/62
== END | disposition home or self-care (01) ==
LOC: SRCNTR 09:19
PROVIDERS: ATTEND Internal Medicine Critical Care Medicine
DX: I10 Essential (primary) hypertension (principal); J44.9 Chronic obstructive pulmonary disease, unspecified; E78.00 Pure hypercholesterolemia, unspecified; I25.10 Atherosclerotic heart disease of native coronary artery without angina pectoris; E11.9 Type 2 diabetes mellitus without complications
CPT/HCPCS: G0463

== ENCOUNTER → 2019-01-07 | Outpatient (CLI) | payer MEDICARE, OTHER ==
[~2019-01-07] VITALS: Ht 142.2 cm; Wt 81.0 kg
[~2019-01-07] MED LIST changes: -CLOP75TA17 PO; +CLOP75TA3 PO
[2019-01-07 13:34] VITALS: BP 139/64
== END | disposition home or self-care (01) ==
LOC: SRCNTR 13:14
PROVIDERS: ATTEND Internal Medicine Critical Care Medicine
DX: J44.9 Chronic obstructive pulmonary disease, unspecified (principal); E78.00 Pure hypercholesterolemia, unspecified; E66.01 Morbid (severe) obesity due to excess calories; I11.0 Hypertensive heart disease with heart failure; I50.32 Chronic diastolic (congestive) heart failure; E11.9 Type 2 diabetes mellitus without complications; I25.10 Atherosclerotic heart disease of native coronary artery without angina pectoris
CPT/HCPCS: G0463

== ENCOUNTER → 2019-09-20 | Outpatient (CLI) | payer MEDICARE, OTHER ==
[~2019-09-20] VITALS: Ht 154.9 cm; Wt 78.0 kg
[~2019-09-20] MED LIST changes: -NITR.4 SL; +NITR0.4T52 SL
[2019-09-20 15:31] VITALS: BP 133/76
== END | disposition home or self-care (01) ==
LOC: SRCNTR 15:27
PROVIDERS: ATTEND Internal Medicine Critical Care Medicine
DX: I25.10 Atherosclerotic heart disease of native coronary artery without angina pectoris (principal); E78.5 Hyperlipidemia, unspecified; E78.00 Pure hypercholesterolemia, unspecified; E66.9 Obesity, unspecified; J44.9 Chronic obstructive pulmonary disease, unspecified; E11.9 Type 2 diabetes mellitus without complications; I50.9 Heart failure, unspecified
CPT/HCPCS: G0463

== ENCOUNTER → 2019-09-24 | Outpatient (CLI) | payer MEDICARE, OTHER ==
[2019-09-24 16:55] LABS: BASOPHILS % (AUTO) 0.1 % (0.0-2.0); EOSINOPHILS % (AUTO) 0.1 % (1.0-6.0); HEMATOCRIT 38.7 % (36-46); HEMOGLOBIN 12.8 g/dL (12.0-16.0); LYMPHOCYTES # (AUTO) 2.1 K/uL (1.0-4.8); LYMPHOCYTES % (AUTO) 26.9 % (22.0-44.0); MEAN CORPUSCULAR HGB CONC 33.1 G/dL (31.0-37.0); MEAN CORPUSCULAR VOLUME 91 fL (80-100); MONOCYTES # (AUTO) 0.8 K/uL (0.1-1.0); NEUTROPHILS % (AUTO) 62.9 % (40.0-70.0); PLATELET COUNT (AUTO) 337 K/uL (150-450); RED BLOOD CELL COUNT(AUTO) 4.28 MIL/uL (4.00-5.20); RED CELL DISTRIBUTION WIDTH 14.2 % (11.5-14.5)
== END | disposition home or self-care (01) ==
LOC: LABMN 15:22
PROVIDERS: ATTEND Internal Medicine Critical Care Medicine
DX: K76.0 Fatty (change of) liver, not elsewhere classified (principal); J44.9 Chronic obstructive pulmonary disease, unspecified; I11.0 Hypertensive heart disease with heart failure; I50.9 Heart failure, unspecified; I25.10 Atherosclerotic heart disease of native coronary artery without angina pectoris; E11.9 Type 2 diabetes mellitus without complications; M19.90 Unspecified osteoarthritis, unspecified site; K44.9 Diaphragmatic hernia without obstruction or gangrene; F41.9 Anxiety disorder, unspecified; E78.00 Pure hypercholesterolemia, unspecified; Z90.89 Acquired absence of other organs
CPT/HCPCS: 82785

== ENCOUNTER → 2019-12-02 | Outpatient (CLI) | payer MEDICARE, OTHER ==
[~2019-12-02] VITALS: Ht 147.3 cm; Wt 87.0 kg
[~2019-12-02] MED LIST changes: +LOSA-88 PO; -LOSA50TA64 PO
[2019-12-02 11:54] VITALS: BP 126/58
== END | disposition home or self-care (01) ==
LOC: SRCNTR 11:53
PROVIDERS: ATTEND Internal Medicine Critical Care Medicine
DX: I10 Essential (primary) hypertension (principal); E78.00 Pure hypercholesterolemia, unspecified; E66.01 Morbid (severe) obesity due to excess calories; J44.9 Chronic obstructive pulmonary disease, unspecified; I25.10 Atherosclerotic heart disease of native coronary artery without angina pectoris; E11.9 Type 2 diabetes mellitus without complications
CPT/HCPCS: G0463

== ENCOUNTER 2020-11-24 15:57 | Emergency (ER) | payer MEDICARE, OTHER ==
[~2020-11-24] VITALS: Ht 152.4 cm; Wt 90.9 kg
[~2020-11-24 15:57] MED LIST changes: +AMLO-257 PO; -CLOP75TA3 PO; +CLOP75TA60 PO; +DULO20CA27 PO; -DULO20CA30 PO; +LEVO750T68 PO; -LOSA-88 PO; +LOSA50TA37 PO; +MONT-35 PO; -MONT10TA21 PO
[2020-11-24] MEDS ORDERED: CYCLOBENZAPRINE HCL 10 MG TABLET PO ONE (16:45)
[2020-11-24] MEDS ORDERED: NAPROXEN 250 MG TABLET PO ONE (16:45)
[2020-11-24] MEDS ORDERED: LIDOCAINE 5% TRANSDERMAL PATCH TD ONE (16:45)
[2020-11-24 17:42] LABS: GLUCOSE,POINT OF CARE 270 MG/DL (70-110)
[2020-11-24] MEDS ORDERED: HYDROCODONE/ACETAMINOPHEN 5-325 MG TABLET PO ONE (18:00)
[2020-11-24 18:26] VITALS: BP 132/73
== END 2020-11-24 18:52 | disposition home or self-care (01) ==
LOC: EMS 16:01
DX: M54.42 Lumbago with sciatica, left side (principal); M85.862 Other specified disorders of bone density and structure, left lower leg; J45.909 Unspecified asthma, uncomplicated; I11.0 Hypertensive heart disease with heart failure; I50.9 Heart failure, unspecified; I25.10 Atherosclerotic heart disease of native coronary artery without angina pectoris; E11.9 Type 2 diabetes mellitus without complications; E78.00 Pure hypercholesterolemia, unspecified; I25.2 Old myocardial infarction; Z90.710 Acquired absence of both cervix and uterus; Z79.4 Long term (current) use of insulin; Z79.82 Long term (current) use of aspirin
CPT/HCPCS: 72100; 99284

== ENCOUNTER → 2021-02-18 | Outpatient (CLI) | payer MEDICARE, OTHER ==
[~2021-02-18] VITALS: Ht 147.3 cm; Wt 88.5 kg
[~2021-02-18] MED LIST changes: +ATOR40TA28 PO; +BENZ200C53 PO; +BUDE10.2 IH; +EMPA25TA PO; +FERR-89 PO; +INSU100V SQ; +INSU200I4 SQ; +IRBE300T43 PO; +LORA-999 PO; +SEMA1PEN SQ
[2021-02-18 11:43] VITALS: BP 128/59
== END | disposition home or self-care (01) ==
LOC: SRCNTR 11:07
PROVIDERS: ATTEND Internal Medicine Critical Care Medicine
DX: J44.1 Chronic obstructive pulmonary disease with (acute) exacerbation (principal); I11.0 Hypertensive heart disease with heart failure; I50.32 Chronic diastolic (congestive) heart failure; E11.9 Type 2 diabetes mellitus without complications; E78.00 Pure hypercholesterolemia, unspecified; E66.01 Morbid (severe) obesity due to excess calories; I25.10 Atherosclerotic heart disease of native coronary artery without angina pectoris
CPT/HCPCS: G0463

== ENCOUNTER → 2021-08-03 | Outpatient (CLI) | payer MEDICARE, OTHER ==
[~2021-08-03] VITALS: Ht 152.4 cm; Wt 81.0 kg
[~2021-08-03] MED LIST changes: -ADV500 IH; -CLOP75TA60 PO; +DICL100G59 TP; -DICL2100G TP; -IBUP-1506 PO; -INSLAN SQ; -IPRA4AER IH; -LEVO750T68 PO; -LIDO700A15 TP; -LORA10TA7 PO; -LOSA50TA37 PO; -MOME17N NASAL
[2021-08-03 12:48] VITALS: BP 132/65
== END | disposition home or self-care (01) ==
LOC: SRCNTR 11:02
PROVIDERS: ATTEND Internal Medicine Critical Care Medicine
DX: I11.0 Hypertensive heart disease with heart failure (principal); I50.9 Heart failure, unspecified; E78.00 Pure hypercholesterolemia, unspecified; J44.9 Chronic obstructive pulmonary disease, unspecified; I25.10 Atherosclerotic heart disease of native coronary artery without angina pectoris; E11.9 Type 2 diabetes mellitus without complications; Z79.4 Long term (current) use of insulin; Z95.5 Presence of coronary angioplasty implant and graft
CPT/HCPCS: G0463

== ENCOUNTER → 2021-08-16 | Outpatient (CLI) | payer MEDICARE, OTHER ==
[~2021-08-16] MED LIST changes: +POTA-185 PO; -POTA10TA10 PO
== END | disposition home or self-care (01) ==
LOC: RADPV 11:35
PROVIDERS: ATTEND Internal Medicine Critical Care Medicine
DX: J44.9 Chronic obstructive pulmonary disease, unspecified (principal); I51.7 Cardiomegaly; I70.0 Atherosclerosis of aorta
CPT/HCPCS: 71046

== ENCOUNTER → 2021-09-17 | Outpatient (CLI) | payer MEDICARE, OTHER ==
[2021-09-17 12:01] VITALS: BP 134/66
== END | disposition home or self-care (01) ==
LOC: SRCNTR 10:46
PROVIDERS: ATTEND Internal Medicine Critical Care Medicine
DX: J44.1 Chronic obstructive pulmonary disease with (acute) exacerbation (principal); E78.00 Pure hypercholesterolemia, unspecified; I25.10 Atherosclerotic heart disease of native coronary artery without angina pectoris; I11.0 Hypertensive heart disease with heart failure; I50.32 Chronic diastolic (congestive) heart failure; E11.9 Type 2 diabetes mellitus without complications; E66.9 Obesity, unspecified; Z95.5 Presence of coronary angioplasty implant and graft
CPT/HCPCS: G0463

== ENCOUNTER → 2021-11-05 | Outpatient (CLI) | payer MEDICARE, OTHER ==
[~2021-11-05] MED LIST changes: +DICL100G51 TP; -DICL100G59 TP
== END | disposition home or self-care (01) ==
LOC: SRCNTR 09:55
PROVIDERS: ATTEND Internal Medicine Critical Care Medicine
DX: I11.0 Hypertensive heart disease with heart failure (principal); I50.9 Heart failure, unspecified; J44.1 Chronic obstructive pulmonary disease with (acute) exacerbation; E11.9 Type 2 diabetes mellitus without complications; Z95.1 Presence of aortocoronary bypass graft
CPT/HCPCS: G0463; Z7500

== ENCOUNTER → 2022-01-26 | Outpatient (CLI) | payer MEDICARE, MEDICAID ==
[~2022-01-26] VITALS: Ht 147.3 cm; Wt 82.6 kg
[~2022-01-26] MED LIST changes: -DULO20CA27 PO; +DULO20CA71 PO; -FERR-89 PO; +FERR325T27 PO
[2022-01-26 11:41] VITALS: BP 156/70
== END | disposition home or self-care (01) ==
LOC: SRCNTR 11:08
PROVIDERS: ATTEND Internal Medicine Critical Care Medicine
DX: I11.0 Hypertensive heart disease with heart failure (principal); I50.9 Heart failure, unspecified; E78.00 Pure hypercholesterolemia, unspecified; E11.9 Type 2 diabetes mellitus without complications; I25.10 Atherosclerotic heart disease of native coronary artery without angina pectoris; J44.9 Chronic obstructive pulmonary disease, unspecified; E66.01 Morbid (severe) obesity due to excess calories
CPT/HCPCS: G0463

== ENCOUNTER 2022-03-09 05:35 | Emergency (ER) | payer MEDICARE, OTHER ==
[~2022-03-09] VITALS: Ht 165.1 cm; Wt 82.3 kg
[2022-03-09] MEDS ORDERED: SODIUM CHLORIDE 0.9% 500 ML IV ONE (06:45)
[2022-03-09] MEDS ORDERED: HYDROmorphone 2 MG/ML VIAL IVP ONE (07:00)
[2022-03-09 07:10] LABS: BASOPHILS % (AUTO) 0.4 % (0.0-2.0); EOSINOPHILS % (AUTO) 0 % (1.0-6.0); HEMATOCRIT 33.3 % (36-46); LYMPHOCYTES # (AUTO) 1.9 K/uL (1.0-4.8); LYMPHOCYTES % (AUTO) 15.5 % (22.0-44.0); MEAN CORPUSCULAR HEMOGLOBIN 27.4 pg (26.0-34.0); MEAN CORPUSCULAR HGB CONC 33.1 G/dL (31.0-37.0); MEAN CORPUSCULAR VOLUME 83 fL (80-100); MONOCYTES # (AUTO) 0.6 K/uL (0.1-1.0); MONOCYTES % (AUTO) 5.2 % (2.0-9.0); NEUTROPHILS # (AUTO) 9.6 K/uL (1.8-7.7); NEUTROPHILS % (AUTO) 78.9 % (40.0-70.0); PLATELET COUNT (AUTO) 361 K/uL (150-450); RED BLOOD CELL COUNT(AUTO) 4.03 MIL/uL (4.00-5.20); RED CELL DISTRIBUTION WIDTH 15.4 % (11.5-14.5)
[2022-03-09 07:41] LABS: CALCIUM, TOTAL 8.2 mg/dL (8.8-10.5); CREATININE 1.37 mg/dL (0.60-1.30); POTASSIUM 5.6 mmol/L (3.5-5.1)
[2022-03-09 07:46] LABS: ALBUMIN 3.3 g/dL (3.4-5.0); BILIRUBIN,TOTAL 0.4 mg/dL (0.1-1.0); TOTAL PROTEIN, SERUM 8.1 g/dL (6.4-8.2)
[2022-03-09 10:36] VITALS: BP 120/57
== END 2022-03-09 10:53 | disposition home or self-care (01) ==
LOC: EMS 05:35
DX: K80.20 Calculus of gallbladder without cholecystitis without obstruction (principal); I11.0 Hypertensive heart disease with heart failure; I50.9 Heart failure, unspecified; I25.2 Old myocardial infarction; E11.9 Type 2 diabetes mellitus without complications; E78.00 Pure hypercholesterolemia, unspecified; J44.9 Chronic obstructive pulmonary disease, unspecified; Z79.899 Other long term (current) drug therapy
CPT/HCPCS: 36415; 74022; 76705; 80053; 82962; 83690; 84484; 85025; 93005; 96361; 96374; 99285; J1170; J7040

== ENCOUNTER 2022-05-11 20:54 | Inpatient (IN) | payer MEDICARE, OTHER ==
[~2022-05-11] VITALS: Ht 149.9 cm; Wt 84.0 kg
[~2022-05-11 20:54] MED LIST changes: -EMPA25TA PO; +EMPA25TA3 PO
[2022-05-11] MEDS ORDERED: PIPERACILLIN/TAZO 3.375 GM/D5W 50 ML IV ONE (22:15)
[2022-05-11] MEDS ORDERED: 0.9% SODIUM CHLORIDE 10 ML SYRINGE IVP PRN (22:15)
[2022-05-11 22:24] LABS: APPEARANCE,URINE CLEAR (CLEAR); BILIRUBIN,URINE NEGATIVE (NEGATIVE); GLUCOSE, URINE (UA) >=1000 mg/dL (NEGATIVE); KETONES,URINE NEGATIVE (NEGATIVE); LEUKOCYTE ESTERASE ,URINE SMALL (NEGATIVE); NITRATE,URINE NEGATIVE (NEGATIVE); OCCULT BLOOD,URINE NEGATIVE (NEGATIVE); PROTEIN,URINE NEGATIVE (NEGATIVE); SPECIFIC GRAVITIY, URINE 1.007 (1.003-1.030); UROBILINOGEN,URINE <=1.0 mg/dL (<=1.0)
[2022-05-11 22:42] LABS: BASOPHILS % (AUTO) 0.6 % (0.0-2.0); EOSINOPHILS % (AUTO) 0.1 % (1.0-6.0); HEMATOCRIT 37.3 % (36-46); HEMOGLOBIN 12.1 g/dL (12.0-16.0); LYMPHOCYTES % (AUTO) 25.1 % (22.0-44.0); MEAN CORPUSCULAR HEMOGLOBIN 27.4 pg (26.0-34.0); MEAN CORPUSCULAR HGB CONC 32.3 G/dL (31.0-37.0); MEAN CORPUSCULAR VOLUME 85 fL (80-100); MONOCYTES # (AUTO) 1.1 K/uL (0.1-1.0); MONOCYTES % (AUTO) 9.5 % (2.0-9.0); NEUTROPHILS # (AUTO) 7.7 K/uL (1.8-7.7); NEUTROPHILS % (AUTO) 64.7 % (40.0-70.0); PLATELET COUNT (AUTO) 306 K/uL (150-450); RED CELL DISTRIBUTION WIDTH 15.2 % (11.5-14.5)
[2022-05-11 22:44] LABS: RBC,URINE None Seen /HPF (0-2)
[2022-05-11 22:45] LABS: BACTERIA,URINE Few /HPF (None Seen)
[2022-05-11 22:46] LABS: WBC,URINE 26-50 /HPF (0-5)
[2022-05-11 22:55] LABS: CREATININE 1.11 mg/dL (0.60-1.30)
[2022-05-11 23:01] LABS: ALBUMIN 3.2 g/dL (3.4-5.0); BILIRUBIN,TOTAL 0.3 mg/dL (0.1-1.0); TOTAL PROTEIN, SERUM 7.6 g/dL (6.4-8.2)
[2022-05-11 23:03] LABS: LACTIC ACID 1.4 mmol/L (0.4-2.0)
[2022-05-11 23:15] LABS: COVID AG,FIA SOURCE NASAL SWAB
[2022-05-12] MEDS ORDERED: ACETAMINOPHEN 325 MG TABLET PO PRN ×2 (00:15→08:30)
[2022-05-12] MEDS ORDERED: 0.9% SODIUM CHLORIDE 10 ML SYRINGE IVP PRN (00:15)
[2022-05-12 00:58] VITALS: BP 132/53
[2022-05-12 04:19] VITALS: BP 133/53
[2022-05-12] MEDS ORDERED: *CLINICAL-MEROPENEM DOSING CLINICAL ONE (08:15)
[2022-05-12 08:58] VITALS: BP 109/59
[2022-05-12] MEDS ORDERED: DEXTROSE 50%-WATER 25 GM/50 ML SYRINGE IVP PRN (09:00)
[2022-05-12] MEDS ORDERED: SODIUM CHLORIDE 0.9% 0 ML ONE (09:00)
[2022-05-12] MEDS ORDERED: SODIUM CHLORIDE 0.9% 500 ML IV ONE (09:29)
[2022-05-12] MEDS: DOCUSATE SODIUM 100 MG CAPSULE PO SCH ×2 (09:45→20:39)
[2022-05-12] MEDS: FAMOTIDINE 20 MG TABLET PO SCH (09:47)
[2022-05-12] MEDS: MEROPENEM 1 GM in SODIUM CHLORIDE 0.9% 100 ML IV SCH ×2 (09:52→20:37)
[2022-05-12] MEDS: INSULIN GLARGINE,HUM.REC.ANLOG 100 UNITS/ML SQ SCH ×2 (10:03→20:36)
[2022-05-12] MEDS: INSULIN LISPRO 100 UNITS/ML SQ PRN ×3 (11:36→20:35)
[2022-05-12 12:21] LABS: GLUCOMETER DEV NAME(LOC) 6N.2; GLUCOSE,POINT OF CARE 210 MG/DL (70-110)
[2022-05-12 12:22] LABS: GLUCOMETER DEV NAME(LOC) 6N.2; GLUCOSE,POINT OF CARE 226 MG/DL (70-110)
[2022-05-12] MEDS: HEPARIN SODIUM,PORCINE 5,000 UNITS/ML VIAL SQ SCH ×2 (17:12→23:26)
[2022-05-12 19:50] VITALS: BP 142/61
[2022-05-12 20:06] LABS: GLUCOMETER DEV NAME(LOC) 6N.2; GLUCOSE,POINT OF CARE 169 MG/DL (70-110)
[2022-05-12 22:46] LABS: GLUCOMETER DEV NAME(LOC) 6S.1B; GLUCOSE,POINT OF CARE 256 MG/DL (70-110)
[2022-05-13] MEDS ORDERED: ALBUTEROL SULFATE 2.5 MG/0.5 ML NEB SOLUTION NEB PRN
[2022-05-13] MEDS ORDERED: 0.9% SODIUM CHLORIDE 5 ML NEB SOLUTION NEB ONE (00:05)
[2022-05-13] MEDS: GABAPENTIN 100 MG CAPSULE PO SCH ×3 (00:41→20:09)
[2022-05-13] MEDS: OXYGEN THERAPY IH SCH ×3 (00:41→20:00)
[2022-05-13] MEDS: ATORVASTATIN CALCIUM 40 MG TABLET PO SCH ×2 (00:41→20:10)
[2022-05-13] MEDS: BUDESONIDE/FORMOTEROL FUMARATE 160-4.5 MCG/PUFF 10.2 GM INHALER IH SCH ×3 (00:42→20:13)
[2022-05-13 03:51] LABS: GLUCOMETER DEV NAME(LOC) 6S.1B; GLUCOSE,POINT OF CARE 170 MG/DL (70-110)
[2022-05-13 04:42] VITALS: BP 131/50
[2022-05-13] MEDS: INSULIN LISPRO 100 UNITS/ML SQ PRN ×4 (06:25→20:11)
[2022-05-13 07:46] LABS: GLUCOMETER DEV NAME(LOC) 6S.1B; GLUCOSE,POINT OF CARE 132 MG/DL (70-110)
[2022-05-13] MEDS: HEPARIN SODIUM,PORCINE 5,000 UNITS/ML VIAL SQ SCH ×3 (08:00→23:11)
[2022-05-13] MEDS: MEROPENEM 1 GM in SODIUM CHLORIDE 0.9% 100 ML IV SCH ×2 (08:24→20:09)
[2022-05-13] MEDS: FAMOTIDINE 20 MG TABLET PO SCH (08:25)
[2022-05-13] MEDS: DOCUSATE SODIUM 100 MG CAPSULE PO SCH ×2 (08:27→20:12)
[2022-05-13] MEDS: INSULIN GLARGINE,HUM.REC.ANLOG 100 UNITS/ML SQ SCH ×2 (08:36→20:11)
[2022-05-13 11:31] LABS: GLUCOMETER DEV NAME(LOC) 6N.2; GLUCOSE,POINT OF CARE 211 MG/DL (70-110)
[2022-05-13 11:41] LABS: GLUCOMETER DEV NAME(LOC) 6S.1B; GLUCOSE,POINT OF CARE 186 MG/DL (70-110)
[2022-05-13] MEDS ORDERED: PANT40TA54 PO (11:56)
[2022-05-13] MEDS ORDERED: TIOT4MIS2 IH (11:56)
[2022-05-13] MEDS ORDERED: ASPI-1444 PO (11:56)
[2022-05-13] MEDS ORDERED: CLOP75TA32 PO (11:56)
[2022-05-13] MEDS ORDERED: NYST15PO4 TP (11:56)
[2022-05-13] MEDS ORDERED: SEMA1PEN3 SQ (11:56)
[2022-05-13] MEDS ORDERED: LORA10TA7 PO (11:56)
[2022-05-13] MEDS ORDERED: PROCTOCM TP (11:56)
[2022-05-13] MEDS ORDERED: INSU3INS3 SQ (11:56)
[2022-05-13] MEDS ORDERED: SUCR1TAB PO (11:56)
[2022-05-13] MEDS ORDERED: NALO4SPR3 NASAL (11:56)
[2022-05-13] MEDS ORDERED: PREG75CA75 PO (11:56)
[2022-05-13] MEDS ORDERED: TRAM50TA4 PO (11:56)
[2022-05-13] MEDS ORDERED: HYDR-4584 PO (11:56)
[2022-05-13] MEDS ORDERED: DOCU-350 PO (12:00)
[2022-05-13] MEDS ORDERED: CHOL25TA4 PO (12:00)
[2022-05-13 15:33] VITALS: BP 153/78
[2022-05-13] MEDS ORDERED: ONDANSETRON HCL 4 MG/2 ML VIAL IVP PRN (18:15)
[2022-05-13 19:30] VITALS: BP 134/61
[2022-05-13 19:51] LABS: GLUCOMETER DEV NAME(LOC) 6S.1B; GLUCOSE,POINT OF CARE 121 MG/DL (70-110)
[2022-05-13 21:46] LABS: GLUCOMETER DEV NAME(LOC) 6N.1; GLUCOSE,POINT OF CARE 226 MG/DL (70-110)
[2022-05-14] MEDS ORDERED: TraMADol HCL 50 MG TABLET PO ONE (02:00)
[2022-05-14] MEDS: GABAPENTIN 300 MG CAPSULE PO SCH ×3 (02:09→20:41)
[2022-05-14] MEDS: PREGABALIN 75 MG CAPSULE PO SCH ×3 (02:09→20:42)
[2022-05-14 04:35] VITALS: BP 105/51
[2022-05-14] MEDS: INSULIN LISPRO 100 UNITS/ML SQ PRN ×4 (05:52→20:52)
[2022-05-14 07:01] LABS: GLUCOMETER DEV NAME(LOC) 6S.1B; GLUCOSE,POINT OF CARE 127 MG/DL (70-110)
[2022-05-14 07:22] VITALS: BP 114/53
[2022-05-14] MEDS: HEPARIN SODIUM,PORCINE 5,000 UNITS/ML VIAL SQ SCH ×5 (08:00→23:48)
[2022-05-14] MEDS: FAMOTIDINE 20 MG TABLET PO SCH (08:06)
[2022-05-14] MEDS: DOCUSATE SODIUM 100 MG CAPSULE PO SCH ×2 (08:06→20:42)
[2022-05-14] MEDS: BUDESONIDE/FORMOTEROL FUMARATE 160-4.5 MCG/PUFF 10.2 GM INHALER IH SCH ×2 (08:07→20:43)
[2022-05-14] MEDS: MEROPENEM 1 GM in SODIUM CHLORIDE 0.9% 100 ML IV SCH ×2 (08:16→20:41)
[2022-05-14] MEDS: INSULIN GLARGINE,HUM.REC.ANLOG 100 UNITS/ML SQ SCH ×2 (08:16→20:51)
[2022-05-14] MEDS: OXYGEN THERAPY IH SCH ×2 (08:17→20:41)
[2022-05-14 09:11] LABS: GLUCOMETER DEV NAME(LOC) 6S.1B; GLUCOSE,POINT OF CARE 131 MG/DL (70-110)
[2022-05-14 12:41] LABS: GLUCOMETER DEV NAME(LOC) 6S.1B; GLUCOSE,POINT OF CARE 237 MG/DL (70-110)
[2022-05-14 16:06] VITALS: BP 128/59
[2022-05-14 19:50] VITALS: BP 115/42
[2022-05-14 20:06] LABS: GLUCOMETER DEV NAME(LOC) 6N.1; GLUCOSE,POINT OF CARE 263 MG/DL (70-110)
[2022-05-14] MEDS: ATORVASTATIN CALCIUM 40 MG TABLET PO SCH (20:49)
[2022-05-14 21:01] LABS: GLUCOMETER DEV NAME(LOC) 6N.2; GLUCOSE,POINT OF CARE 238 MG/DL (70-110)
[2022-05-15 04:20] VITALS: BP 131/58
[2022-05-15] MEDS: INSULIN LISPRO 100 UNITS/ML SQ PRN ×4 (06:11→20:50)
[2022-05-15 07:41] LABS: GLUCOMETER DEV NAME(LOC) 6S.1B; GLUCOSE,POINT OF CARE 128 MG/DL (70-110)
[2022-05-15] MEDS: HEPARIN SODIUM,PORCINE 5,000 UNITS/ML VIAL SQ SCH ×2 (08:00→17:32)
[2022-05-15 08:07] VITALS: BP 112/51
[2022-05-15] MEDS: GABAPENTIN 300 MG CAPSULE PO SCH ×2 (10:24→20:06)
[2022-05-15] MEDS: INSULIN GLARGINE,HUM.REC.ANLOG 100 UNITS/ML SQ SCH ×2 (10:24→20:49)
[2022-05-15] MEDS: BUDESONIDE/FORMOTEROL FUMARATE 160-4.5 MCG/PUFF 10.2 GM INHALER IH SCH ×2 (10:24→20:49)
[2022-05-15] MEDS: FAMOTIDINE 20 MG TABLET PO SCH (10:24)
[2022-05-15] MEDS: PREGABALIN 75 MG CAPSULE PO SCH ×2 (10:24→20:06)
[2022-05-15] MEDS: MEROPENEM 1 GM in SODIUM CHLORIDE 0.9% 100 ML IV SCH ×2 (10:24→20:07)
[2022-05-15] MEDS: DOCUSATE SODIUM 100 MG CAPSULE PO SCH ×2 (10:24→20:06)
[2022-05-15 16:31] VITALS: BP 124/52
[2022-05-15 17:06] LABS: GLUCOMETER DEV NAME(LOC) 6S.1B; GLUCOSE,POINT OF CARE 255 MG/DL (70-110)
[2022-05-15 18:01] LABS: GLUCOMETER DEV NAME(LOC) 6S.1B; GLUCOSE,POINT OF CARE 197 MG/DL (70-110)
[2022-05-15 19:27] VITALS: BP 141/62
[2022-05-15] MEDS: ATORVASTATIN CALCIUM 40 MG TABLET PO SCH (20:06)
[2022-05-16 03:55] VITALS: BP 129/56
[2022-05-16] MEDS: FAMOTIDINE 20 MG TABLET PO SCH (04:06)
[2022-05-16] MEDS: INSULIN LISPRO 100 UNITS/ML SQ PRN (05:49)
[2022-05-16 05:57] LABS: GLUCOMETER DEV NAME(LOC) 6N.2; GLUCOSE,POINT OF CARE 239 MG/DL (70-110)
[2022-05-16 06:45] LABS: BASOPHILS % (AUTO) 0.5 % (0.0-2.0); EOSINOPHILS % (AUTO) 0.1 % (1.0-6.0); HEMOGLOBIN 12.3 g/dL (12.0-16.0); LYMPHOCYTES # (AUTO) 3.2 K/uL (1.0-4.8); MEAN CORPUSCULAR HEMOGLOBIN 27.2 pg (26.0-34.0); MEAN CORPUSCULAR HGB CONC 32.4 G/dL (31.0-37.0); MEAN CORPUSCULAR VOLUME 84 fL (80-100); MONOCYTES # (AUTO) 0.9 K/uL (0.1-1.0); MONOCYTES % (AUTO) 7.7 % (2.0-9.0); NEUTROPHILS # (AUTO) 7.2 K/uL (1.8-7.7); NEUTROPHILS % (AUTO) 63.7 % (40.0-70.0); PLATELET COUNT (AUTO) 290 K/uL (150-450); RED BLOOD CELL COUNT(AUTO) 4.52 MIL/uL (4.00-5.20)
[2022-05-16 06:56] LABS: ANION GAP 7 mmol/L (8-16); CARBON DIOXIDE 28 mmol/L (22-29); CHLORIDE 107 mmol/L (98-107); CREATININE 0.83 mg/dL (0.60-1.30); GLUCOSE,RANDOM 153 mg/dL (70-110); POTASSIUM 3.7 mmol/L (3.5-5.1); SODIUM SERUM 142 mmol/L (136-145); UREA NITROGEN, BLOOD 22 mg/dL (7-18)
[2022-05-16 07:03] LABS: GLOMERULAR FILTR. RATE CALC > 60 mL/min (>60)
[2022-05-16 07:16] VITALS: BP 134/58
[2022-05-16] MEDS: HEPARIN SODIUM,PORCINE 5,000 UNITS/ML VIAL SQ SCH ×2 (08:00)
[2022-05-16] MEDS: PREGABALIN 75 MG CAPSULE PO SCH (08:09)
[2022-05-16] MEDS: GABAPENTIN 300 MG CAPSULE PO SCH (08:09)
[2022-05-16] MEDS: DOCUSATE SODIUM 100 MG CAPSULE PO SCH (08:09)
[2022-05-16] MEDS: MEROPENEM 1 GM in SODIUM CHLORIDE 0.9% 100 ML IV SCH (08:10)
[2022-05-16] MEDS: BUDESONIDE/FORMOTEROL FUMARATE 160-4.5 MCG/PUFF 10.2 GM INHALER IH SCH (08:10)
[2022-05-16] MEDS: INSULIN GLARGINE,HUM.REC.ANLOG 100 UNITS/ML SQ SCH (08:12)
[2022-05-16 09:02] LABS: GLUCOMETER DEV NAME(LOC) 6S.1B; GLUCOSE,POINT OF CARE 135 MG/DL (70-110)
[2022-05-16 19:56] LABS: GLUCOMETER DEV NAME(LOC) 6N.2; GLUCOSE,POINT OF CARE 158 MG/DL (70-110)
== END 2022-05-16 12:00 | disposition home or self-care (01) | DRG 690 ==
LOC: EMS 20:55 → 6N 05-12 00:41 → 6S 05-12 12:21
PROVIDERS: ADMIT Internal Medicine; ATTEND Internal Medicine
DX: N39.0 Urinary tract infection, site not specified (principal); Z16.24 Resistance to multiple antibiotics; E11.40 Type 2 diabetes mellitus with diabetic neuropathy, unspecified; J44.9 Chronic obstructive pulmonary disease, unspecified; I11.0 Hypertensive heart disease with heart failure; I50.9 Heart failure, unspecified; I25.10 Atherosclerotic heart disease of native coronary artery without angina pectoris; K80.20 Calculus of gallbladder without cholecystitis without obstruction; Z20.822 Contact with and (suspected) exposure to COVID-19; E78.00 Pure hypercholesterolemia, unspecified; E66.01 Morbid (severe) obesity due to excess calories; Z79.899 Other long term (current) drug therapy; Z90.710 Acquired absence of both cervix and uterus; Z68.37 Body mass index [BMI] 37.0-37.9, adult
CPT/HCPCS: 80048; 80053; 81001; 82962; 83605; 85025; 87040; 87086; 94640; 97162; 97165; 99285; J1644; J1815; J2185; J2405; J2543; J7030; J7040; J7050

== ENCOUNTER 2022-06-06 05:17 | Day surgery (SDC) | payer MEDICARE, OTHER ==
[2022-06-03 11:34] LABS: COVID AG,FIA SOURCE NASAL SWAB
[2022-06-03 11:39] LABS: BASOPHILS % (AUTO) 0.3 % (0.0-2.0); EOSINOPHILS % (AUTO) 0 % (1.0-6.0); HEMATOCRIT 40.1 % (36-46); HEMOGLOBIN 13.1 g/dL (12.0-16.0); LYMPHOCYTES # (AUTO) 2.1 K/uL (1.0-4.8); LYMPHOCYTES % (AUTO) 22.1 % (22.0-44.0); MEAN CORPUSCULAR HGB CONC 32.7 G/dL (31.0-37.0); MEAN CORPUSCULAR VOLUME 86 fL (80-100); MONOCYTES # (AUTO) 0.7 K/uL (0.1-1.0); MONOCYTES % (AUTO) 7.2 % (2.0-9.0); NEUTROPHILS # (AUTO) 6.6 K/uL (1.8-7.7); NEUTROPHILS % (AUTO) 70.4 % (40.0-70.0); PLATELET COUNT (AUTO) 286 K/uL (150-450); RED BLOOD CELL COUNT(AUTO) 4.69 MIL/uL (4.00-5.20); RED CELL DISTRIBUTION WIDTH 15.6 % (11.5-14.5)
[2022-06-03 11:47] LABS: CALCIUM, TOTAL 9.1 mg/dL (8.8-10.5); CREATININE 1.31 mg/dL (0.60-1.30); POTASSIUM 4.1 mmol/L (3.5-5.1)
[2022-06-03 11:53] LABS: ALBUMIN 3.1 g/dL (3.4-5.0); BILIRUBIN,TOTAL 0.5 mg/dL (0.1-1.0); TOTAL PROTEIN, SERUM 7.8 g/dL (6.4-8.2)
[~2022-06-06] VITALS: Ht 149.9 cm; Wt 82.2 kg
[~2022-06-06 05:17] MED LIST changes: -ALBU0.21 IH; -ASPI-1198 PO; +ASPI-1444 PO; -ATOR40TA28 PO; -BENZ200C53 PO; -BISA5TAB96 PO; -CHOL10002 PO; +CHOL25TA4 PO; +CLOP75TA32 PO; +DOCU-350 PO; -DSS100 PO; -DULO20CA71 PO; -FERR325T27 PO; -FURO40TA5 PO; -GABA-531 PO; -HYDR10TA31 PO; -INSU200I4 SQ; +INSU3INS3 SQ; -IRBE300T43 PO; -LINA145C PO; -LORA-999 PO; -METF-446 PO; -MONT-35 PO; -NITR0.4T52 SL; -OMEP20CA4 PO; -POTA-185 PO; -RANO500T3 PO; -SEMA1PEN SQ; -TIOT185 IH; +TIOT4MIS2 IH; -TOPI25 PO; -TRI2560LO TP
[2022-06-06] MEDS ORDERED: ROCURONIUM BROMIDE 10 MG/ML 5 ML VIAL IVP ONE (05:18)
[2022-06-06] MEDS ORDERED: PROPOFOL 1% 20 ML VIAL IVP ONE (05:18)
[2022-06-06] MEDS ORDERED: FentaNYL CITRATE PF 100 MCG/2 ML VIAL IVP ONE (05:18)
[2022-06-06] MEDS ORDERED: LIDOCAINE/PF 2% 5 ML SYRINGE IVP ONE (05:18)
[2022-06-06] MEDS ORDERED: SODIUM CHLORIDE 0.9% 1,000 ML IV ONE (06:00)
[2022-06-06 07:01] LABS: GLUCOMETER DEV NAME(LOC) SDS.; GLUCOSE,POINT OF CARE 161 MG/DL (70-110)
[2022-06-06] MEDS ORDERED: BUPIVACAINE 0.25%/EPI 1:200,000/PF 30 ML VIAL PERC ONE (07:09)
[2022-06-06] MEDS ORDERED: CeFAZolin 2 GM/DEXTROSE 50 ML IV ONE (07:30)
[2022-06-06] MEDS ORDERED: FentaNYL CITRATE PF 100 MCG/2 ML VIAL IVP PRN (08:30)
[2022-06-06] MEDS ORDERED: FentaNYL CITRATE PF 100 MCG/2 ML VIAL ONE (08:51)
[2022-06-06] MEDS ORDERED: HYDROmorphone 2 MG/ML VIAL IVP ONE (09:15)
[2022-06-06] MEDS ORDERED: HYDROmorphone 2 MG/ML VIAL ONE (09:16)
[2022-06-06] MEDS ORDERED: OXYGEN THERAPY IH SCH (20:00)
== END 2022-06-06 11:20 | disposition home or self-care (01) ==
LOC: SURGERY 05:17
PROVIDERS: ATTEND Surgery
DX: K80.10 Calculus of gallbladder with chronic cholecystitis without obstruction (principal); Z79.899 Other long term (current) drug therapy; I25.10 Atherosclerotic heart disease of native coronary artery without angina pectoris; I50.9 Heart failure, unspecified; I11.0 Hypertensive heart disease with heart failure; E11.9 Type 2 diabetes mellitus without complications; E66.9 Obesity, unspecified; Z68.36 Body mass index [BMI] 36.0-36.9, adult; K74.60 Unspecified cirrhosis of liver; I25.2 Old myocardial infarction; Z95.5 Presence of coronary angioplasty implant and graft; Z79.4 Long term (current) use of insulin; J43.9 Emphysema, unspecified; Z90.710 Acquired absence of both cervix and uterus; Z90.721 Acquired absence of ovaries, unilateral; Z98.890 Other specified postprocedural states
CPT/HCPCS: 93005; 87426; 80053; 85025; 36415; 47562; 82962; C9803; J2704; J0690; J3010; J1170; J3490 ×2; Q9967

== ENCOUNTER → 2022-06-16 | Outpatient (CLI) | payer MEDICARE, OTHER ==
[~2022-06-16] MED LIST changes: -ALEN70TA2 PO; +ALEN70TA85 PO; +CEPH-558 PO; +PHEN-846 PO
[2022-06-16 12:00] VITALS: BP 101/56
== END | disposition home or self-care (01) ==
LOC: SRCNTR 10:27
PROVIDERS: ATTEND Internal Medicine Critical Care Medicine
DX: I11.0 Hypertensive heart disease with heart failure (principal); I50.32 Chronic diastolic (congestive) heart failure; E11.9 Type 2 diabetes mellitus without complications; E78.5 Hyperlipidemia, unspecified; J44.9 Chronic obstructive pulmonary disease, unspecified; I25.10 Atherosclerotic heart disease of native coronary artery without angina pectoris; E66.9 Obesity, unspecified
CPT/HCPCS: G0463

== ENCOUNTER 2022-07-02 19:34 | Emergency (ER) | payer MEDICARE, OTHER ==
[~2022-07-02] VITALS: Ht 152.4 cm; Wt 90.9 kg
[~2022-07-02 19:34] MED LIST changes: -CEPH-558 PO; -PHEN-846 PO
[2022-07-02] MEDS ORDERED: MORPHINE SULFATE 4 MG/ML SYRINGE IVP ONE (20:00)
[2022-07-02] MEDS ORDERED: ONDANSETRON HCL 4 MG/2 ML VIAL IVP ONE (20:00)
[2022-07-02] MEDS ORDERED: SODIUM CHLORIDE 0.9% 1,000 ML IV ONE (20:00)
[2022-07-02 20:49] LABS: BASOPHILS % (AUTO) 0.1 % (0.0-2.0); EOSINOPHILS % (AUTO) 0 % (1.0-6.0); HEMOGLOBIN 12.4 g/dL (12.0-16.0); LYMPHOCYTES # (AUTO) 1.9 K/uL (1.0-4.8); LYMPHOCYTES % (AUTO) 13.6 % (22.0-44.0); MEAN CORPUSCULAR HEMOGLOBIN 28.1 pg (26.0-34.0); MEAN CORPUSCULAR HGB CONC 32.7 G/dL (31.0-37.0); MEAN CORPUSCULAR VOLUME 86 fL (80-100); MONOCYTES # (AUTO) 1.2 K/uL (0.1-1.0); MONOCYTES % (AUTO) 8.7 % (2.0-9.0); NEUTROPHILS # (AUTO) 10.8 K/uL (1.8-7.7); NEUTROPHILS % (AUTO) 77.6 % (40.0-70.0); PLATELET COUNT (AUTO) 349 K/uL (150-450); RED BLOOD CELL COUNT(AUTO) 4.43 MIL/uL (4.00-5.20); RED CELL DISTRIBUTION WIDTH 15.7 % (11.5-14.5)
[2022-07-02 20:55] LABS: APPEARANCE,URINE HAZY (CLEAR); BILIRUBIN,URINE NEGATIVE (NEGATIVE); GLUCOSE, URINE (UA) >=1000 mg/dL (NEGATIVE); KETONES,URINE NEGATIVE (NEGATIVE); LEUKOCYTE ESTERASE ,URINE LARGE (NEGATIVE); NITRATE,URINE NEGATIVE (NEGATIVE); OCCULT BLOOD,URINE NEGATIVE (NEGATIVE); PROTEIN,URINE NEGATIVE (NEGATIVE); SPECIFIC GRAVITIY, URINE 1.008 (1.003-1.030); UROBILINOGEN,URINE <=1.0 mg/dL (<=1.0)
[2022-07-02 20:57] LABS: CALCIUM, TOTAL 9.2 mg/dL (8.8-10.5); CREATININE 1.05 mg/dL (0.60-1.30); POTASSIUM 3.2 mmol/L (3.5-5.1)
[2022-07-02 21:03] LABS: ALBUMIN 3.4 g/dL (3.4-5.0); BILIRUBIN,TOTAL 0.5 mg/dL (0.1-1.0); TOTAL PROTEIN, SERUM 8.3 g/dL (6.4-8.2)
[2022-07-02 21:04] LABS: BACTERIA,URINE Many /HPF (None Seen); RBC,URINE None Seen /HPF (0-2)
[2022-07-02] MEDS ORDERED: PHENAZOPYRIDINE HCL 100 MG TABLET PO ONE (21:30)
[2022-07-02] MEDS ORDERED: POTASSIUM CHLORIDE 20 MEQ ER TABLET PO ONE (21:30)
[2022-07-02] MEDS ORDERED: CefTRIAXone 1 GM/DEXTROSE 50 ML IV ONE (21:30)
[2022-07-02] MEDS ORDERED: CEPH-558 PO (21:34)
[2022-07-02] MEDS ORDERED: PHEN-846 PO (21:34)
[2022-07-02] MEDS ORDERED: CEPHALEXIN MONOHYDRATE 500 MG CAPSULE PO ONE (21:45)
[2022-07-02 21:50] VITALS: BP 135/73
== END 2022-07-02 22:15 | disposition home or self-care (01) ==
LOC: EMS 19:39
DX: N39.0 Urinary tract infection, site not specified (principal); E78.00 Pure hypercholesterolemia, unspecified; J45.909 Unspecified asthma, uncomplicated; I11.0 Hypertensive heart disease with heart failure; I50.9 Heart failure, unspecified; I25.10 Atherosclerotic heart disease of native coronary artery without angina pectoris; M19.90 Unspecified osteoarthritis, unspecified site; K59.00 Constipation, unspecified; R35.0 Frequency of micturition; Z90.710 Acquired absence of both cervix and uterus
CPT/HCPCS: 99284; 96374; 96361; 96375; 80053; 81001; 83690; 85025; 36415; 87086; J2270; J2405; J7030; 51701

== ENCOUNTER → 2022-07-18 | Outpatient (CLI) | payer MEDICARE, OTHER ==
[~2022-07-18] MED LIST changes: +CEPH-558 PO; +PHEN-846 PO; +PNEUMOCOCCAL VACCINE POLYVALENT 0.5 ML VIAL [PPSV23] IM. ONE
[2022-07-18 13:42] VITALS: BP 127/57
== END | disposition home or self-care (01) ==
LOC: SRCNTR 10:48
PROVIDERS: ATTEND Internal Medicine Pulmonary Disease
DX: I11.0 Hypertensive heart disease with heart failure (principal); I50.32 Chronic diastolic (congestive) heart failure; J43.9 Emphysema, unspecified; E11.9 Type 2 diabetes mellitus without complications; E78.00 Pure hypercholesterolemia, unspecified; I25.10 Atherosclerotic heart disease of native coronary artery without angina pectoris; M19.90 Unspecified osteoarthritis, unspecified site; I25.2 Old myocardial infarction; E66.01 Morbid (severe) obesity due to excess calories; Z68.36 Body mass index [BMI] 36.0-36.9, adult; Z79.4 Long term (current) use of insulin; Z90.710 Acquired absence of both cervix and uterus; Z79.899 Other long term (current) drug therapy; Z95.1 Presence of aortocoronary bypass graft
CPT/HCPCS: 90732; 90471; G0463

== ENCOUNTER → 2022-12-23 | Outpatient (CLI) | payer MEDICARE, OTHER ==
[~2022-12-23] MED LIST changes: -PNEUMOCOCCAL VACCINE POLYVALENT 0.5 ML VIAL [PPSV23] IM. ONE
[2022-12-23 09:54] VITALS: BP 125/58
== END | disposition home or self-care (01) ==
LOC: SRCNTR 09:35
PROVIDERS: ATTEND Internal Medicine Pulmonary Disease
DX: I11.0 Hypertensive heart disease with heart failure (principal); I50.32 Chronic diastolic (congestive) heart failure; J44.1 Chronic obstructive pulmonary disease with (acute) exacerbation; E78.00 Pure hypercholesterolemia, unspecified; E66.01 Morbid (severe) obesity due to excess calories; E11.9 Type 2 diabetes mellitus without complications; I25.10 Atherosclerotic heart disease of native coronary artery without angina pectoris
CPT/HCPCS: G0463

== ENCOUNTER → 2023-02-20 | Outpatient (CLI) | payer MEDICARE, OTHER ==
[~2023-02-20] MED LIST changes: +BENZ-227 PO
== END | disposition home or self-care (01) ==
LOC: LABMN 12:01
PROVIDERS: ATTEND Internal Medicine Pulmonary Disease
DX: J45.909 Unspecified asthma, uncomplicated (principal); M47.814 Spondylosis without myelopathy or radiculopathy, thoracic region; R18.8 Other ascites
CPT/HCPCS: 71046

== ENCOUNTER → 2023-02-21 | Outpatient (CLI) | payer MEDICARE, OTHER ==
[2023-02-21 12:15] VITALS: BP 125/58
== END | disposition home or self-care (01) ==
LOC: SRCNTR 11:43
PROVIDERS: ATTEND Internal Medicine Pulmonary Disease
DX: I10 Essential (primary) hypertension (principal); E78.00 Pure hypercholesterolemia, unspecified; I25.10 Atherosclerotic heart disease of native coronary artery without angina pectoris; E11.9 Type 2 diabetes mellitus without complications; J44.9 Chronic obstructive pulmonary disease, unspecified; I50.9 Heart failure, unspecified; E66.01 Morbid (severe) obesity due to excess calories; Z95.1 Presence of aortocoronary bypass graft
CPT/HCPCS: G0463; Z7500

== ENCOUNTER → 2023-04-21 | Outpatient (CLI) | payer MEDICARE, OTHER ==
[~2023-04-21] MED LIST changes: -DICL100G51 TP; +DICL100G60 TP; +FAMO20 PO; +FURO40 PO; +HYDR-4584 PO; +HYDR10TA31 PO; +IRBE150T51 PO; +LINA145C PO; +LORA-999 PO; +METF-81 PO; +MONT-35 PO; +PANT-31 PO; +POTA-92 PO; +PREG75 PO
[2023-04-21 12:09] VITALS: BP 97/51; PULSE 70; RESP 16; TEMP 98.5; O2SAT 98
== END | disposition home or self-care (01) ==
LOC: SRCNTR 11:37
PROVIDERS: ATTEND Internal Medicine Pulmonary Disease
DX: J44.9 Chronic obstructive pulmonary disease, unspecified (principal); J45.909 Unspecified asthma, uncomplicated; I20.0 Unstable angina; E78.00 Pure hypercholesterolemia, unspecified; I50.9 Heart failure, unspecified; E11.9 Type 2 diabetes mellitus without complications; E66.09 Other obesity due to excess calories; I11.0 Hypertensive heart disease with heart failure; Z79.82 Long term (current) use of aspirin; Z79.899 Other long term (current) drug therapy; Z82.49 Family history of ischemic heart disease and other diseases of the circulatory system
CPT/HCPCS: G0463; Z7500

== ENCOUNTER → 2023-06-20 | Outpatient (CLI) | payer MEDICARE, OTHER ==
[~2023-06-20] MED LIST changes: -CEPH-558 PO; +CLOP75TA60 PO; -DOCU-350 PO; +DOCU-412 PO; -PHEN-846 PO
[2023-06-20 10:47] VITALS: BP 121/48; PULSE 69; RESP 17; TEMP 98.7; O2SAT 99
== END | disposition home or self-care (01) ==
LOC: SRCNTR 10:27
PROVIDERS: ATTEND Internal Medicine Pulmonary Disease
DX: J45.909 Unspecified asthma, uncomplicated (principal); E78.00 Pure hypercholesterolemia, unspecified; I25.10 Atherosclerotic heart disease of native coronary artery without angina pectoris; E66.01 Morbid (severe) obesity due to excess calories; I11.0 Hypertensive heart disease with heart failure; I50.32 Chronic diastolic (congestive) heart failure; E11.9 Type 2 diabetes mellitus without complications; Z79.4 Long term (current) use of insulin; Z79.899 Other long term (current) drug therapy; Z82.49 Family history of ischemic heart disease and other diseases of the circulatory system
CPT/HCPCS: G0463; Z7500

== ENCOUNTER → 2023-08-25 | Outpatient (CLI) | payer MEDICARE, OTHER ==
[~2023-08-25] MED LIST changes: -CLOP75TA60 PO; +FLUT1BLS IH; -HYDR-4584 PO
[2023-08-25 12:05] VITALS: BP 136/57; PULSE 66; RESP 17; O2SAT 99
== END | disposition home or self-care (01) ==
LOC: SRCNTR 11:36
PROVIDERS: ATTEND Internal Medicine Pulmonary Disease
DX: I11.0 Hypertensive heart disease with heart failure (principal); I50.9 Heart failure, unspecified; E78.00 Pure hypercholesterolemia, unspecified; J44.9 Chronic obstructive pulmonary disease, unspecified; I25.10 Atherosclerotic heart disease of native coronary artery without angina pectoris; E11.9 Type 2 diabetes mellitus without complications; Z98.61 Coronary angioplasty status
CPT/HCPCS: G0463; Z7500

== ENCOUNTER → 2023-09-22 | Outpatient (CLI) | payer MEDICARE, OTHER ==
[~2023-09-22] MED LIST changes: -ALEN70TA85 PO; +DOXY-354 PO; +GUAIF10 PO
== END | disposition home or self-care (01) ==
LOC: SRCNTR 13:10
PROVIDERS: ATTEND Internal Medicine Pulmonary Disease
DX: I11.0 Hypertensive heart disease with heart failure (principal); I50.9 Heart failure, unspecified; E78.00 Pure hypercholesterolemia, unspecified; J44.9 Chronic obstructive pulmonary disease, unspecified; E11.9 Type 2 diabetes mellitus without complications; E66.01 Morbid (severe) obesity due to excess calories
CPT/HCPCS: G0463; Z7500

== ENCOUNTER 2023-10-24 18:14 | Inpatient (IN) | payer MEDICARE, OTHER ==
[~2023-10-24] VITALS: Ht 152.4 cm; Wt 81.8 kg
[2023-10-24] MEDS ORDERED: 0.9% SODIUM CHLORIDE 10 ML SYRINGE IVP PRN (18:30)
[2023-10-24] MEDS ORDERED: NITR0.4T52 SL (18:44)
[2023-10-24] MEDS ORDERED: SEMA2PEN SQ (18:44)
[2023-10-24] MEDS ORDERED: HYDR-3831 PO (18:44)
[2023-10-24] MEDS ORDERED: FLUT16SP NASAL (18:44)
[2023-10-24] MEDS ORDERED: METF-446 PO (18:44)
[2023-10-24] MEDS ORDERED: FERR325T23 PO (18:44)
[2023-10-24 18:52] LABS: BASOPHILS % (AUTO) 0.3 % (0.0-2.0); EOSINOPHILS % (AUTO) 0 % (1.0-6.0); HEMATOCRIT 34.6 % (36-46); HEMOGLOBIN 11.5 g/dL (12.0-16.0); LYMPHOCYTES # (AUTO) 1.6 K/uL (1.0-4.8); LYMPHOCYTES % (AUTO) 10.3 % (22.0-44.0); MEAN CORPUSCULAR HEMOGLOBIN 27.9 pg (26.0-34.0); MEAN CORPUSCULAR HGB CONC 33.2 G/dL (31.0-37.0); MEAN CORPUSCULAR VOLUME 84 fL (80-100); MONOCYTES # (AUTO) 0.9 K/uL (0.1-1.0); MONOCYTES % (AUTO) 5.3 % (2.0-9.0); NEUTROPHILS # (AUTO) 13.5 K/uL (1.8-7.7); NEUTROPHILS % (AUTO) 84.1 % (40.0-70.0); PLATELET COUNT (AUTO) 244 K/uL (150-450); RED BLOOD CELL COUNT(AUTO) 4.12 MIL/uL (4.00-5.20); RED CELL DISTRIBUTION WIDTH 16.9 % (11.5-14.5)
[2023-10-24 18:57] LABS: INR 1.1 (0.9-1.1); PROTHROMBIN TIME 11.4 SEC (9.4-11.6)
[2023-10-24 18:59] LABS: ANION GAP 11 mmol/L (8-16); CALCIUM, TOTAL 8.8 mg/dL (8.8-10.5); CARBON DIOXIDE 24 mmol/L (22-29); CHLORIDE 101 mmol/L (98-107); GLOMERULAR FILTR. RATE CALC 49 mL/min (>60); GLUCOSE,RANDOM 296 mg/dL (70-110); POTASSIUM 3.7 mmol/L (3.5-5.1); SODIUM SERUM 136 mmol/L (136-145); UREA NITROGEN, BLOOD 13 mg/dL (7-18)
[2023-10-24 19:04] LABS: ALANINE AMINOTRANSFERASE 11 U/L (12-78); ALBUMIN 2.9 g/dL (3.4-5.0); ALKALINE PHOSPHATASE 132 U/L (46-116); ASPARTATE AMINOTRANSFERASE 18 U/L (15-37); BILIRUBIN,TOTAL 0.6 mg/dL (0.1-1.0); TOTAL PROTEIN, SERUM 7.4 g/dL (6.4-8.2)
[2023-10-24 19:07] LABS: LACTIC ACID 1.6 mmol/L (0.4-2.0)
[2023-10-24] MEDS ORDERED: PIPERACILLIN/TAZO 3.375 GM/D5W 50 ML IV ONE (19:15)
[2023-10-24] MEDS ORDERED: SODIUM CHLORIDE 0.9% 2,450 ML IV ONE (19:15)
[2023-10-24 20:17] LABS: COVID AG,FIA SOURCE NASAL SWAB
[2023-10-24 20:26] LABS: APPEARANCE,URINE CLEAR (CLEAR); BILIRUBIN,URINE NEGATIVE (NEGATIVE); COLOR,URINE LIGHT YELLOW (YELLOW); GLUCOSE, URINE (UA) >=1000 mg/dL (NEGATIVE); KETONES,URINE NEGATIVE (NEGATIVE); LEUKOCYTE ESTERASE ,URINE MODERATE (NEGATIVE); NITRATE,URINE NEGATIVE (NEGATIVE); OCCULT BLOOD,URINE TRACE (NEGATIVE); PROTEIN,URINE 100-200,SEE CONFIRM mg/dL (NEGATIVE); SPECIFIC GRAVITIY, URINE 1.012 (1.003-1.030); UROBILINOGEN,URINE <=1.0 mg/dL (<=1.0)
[2023-10-24 20:47] LABS: INFLUENZA TYPE A NEGATIVE FOR TYPE A (NEGATIVE); INFLUENZA TYPE B NEGATIVE FOR TYPE B (NEGATIVE)
[2023-10-24 20:48] LABS: SARS-COV2 (COVID) ANTIGEN,FIA Negative (Negative)
[2023-10-24] MEDS ORDERED: ACETAMINOPHEN 500 MG TABLET PO ONE (21:00)
[2023-10-24 21:14] LABS: SULFOSALICYLIC ACID,URINE 2+ (Negative)
[2023-10-24 21:15] LABS: BACTERIA,URINE Many /HPF (None Seen); SQUAMOUS EPITHELIAL CELL,UR Few /LPF (None Seen)
[2023-10-24 22:45] VITALS: BP 153/71; PULSE 86; RESP 22; TEMP 98.5
[2023-10-25] VITALS (10 sets, daily range): BP systolic 122–163; BP diastolic 50–60; PULSE 63–88; RESP 8–21; TEMP 97.8–98.7; O2SAT 95–99
[2023-10-25] MEDS ORDERED: SODIUM CHLORIDE 0.9% 250 ML IV ONE (01:16)
[2023-10-25] MEDS: PIPERACILLIN/TAZO 3.375 GM/D5W 50 ML IV SCH ×2 (01:26→06:36)
[2023-10-25] MEDS ORDERED: FUROSEMIDE 20 MG/2 ML VIAL IVP ONE (02:00)
[2023-10-25] MEDS: ALBUTEROL SULFATE 2.5 MG/0.5 ML NEB SOLUTION NEB PRN ×2 (04:01→14:42)
[2023-10-25] MEDS: IPRATROPIUM BROMIDE 0.5 MG/2.5 ML NEB SOLUTION NEB PRN ×2 (04:01→14:42)
[2023-10-25] MEDS ORDERED: DEXTROSE 50%-WATER 25 GM/50 ML SYRINGE IVP PRN ×2 (08:45→14:15)
[2023-10-25] MEDS: INSULIN LISPRO 100 UNITS/ML SQ PRN ×3 (09:04→18:02)
[2023-10-25 11:41] LABS: GLUCOMETER DEV NAME(LOC) 5S.1B; GLUCOSE,POINT OF CARE 241 MG/DL (70-110)
[2023-10-25 11:42] LABS: GLUCOMETER DEV NAME(LOC) 5S.1B; GLUCOSE,POINT OF CARE 202 MG/DL (70-110)
[2023-10-25] MEDS ORDERED: ACETAMINOPHEN 325 MG TABLET PO PRN (14:00)
[2023-10-25] MEDS ORDERED: BISACODYL 10 MG RECTAL RECTAL SUPPOSITORY PR PRN (14:00)
[2023-10-25] MEDS ORDERED: HYDROCODONE/ACETAMINOPHEN 5-325 MG TABLET PO PRN (14:00)
[2023-10-25] MEDS ORDERED: *CLINICAL-LEVOFLOXACIN IVPB DOSING CLINICAL ONE (14:00)
[2023-10-25] MEDS ORDERED: MORPHINE SULFATE 2 MG/ML SYRINGE IVP PRN (14:00)
[2023-10-25] MEDS ORDERED: MAGNESIUM HYDROXIDE SUSPENSION 30 ML UDCUP PO PRN (14:00)
[2023-10-25] MEDS ORDERED: ONDANSETRON HCL 4 MG/2 ML VIAL IVP PRN (14:00)
[2023-10-25] MEDS ORDERED: ZOLPIDEM TARTRATE 5 MG TABLET PO PRN (14:00)
[2023-10-25] MEDS ORDERED: LEVOFLOXACIN 750 MG/D5% WATER 150 ML IV SCH (15:00)
[2023-10-25] MEDS: HEPARIN SODIUM,PORCINE 5,000 UNITS/ML VIAL SQ SCH ×2 (16:00→16:13)
[2023-10-25] MEDS: BENZONATATE 100 MG CAPSULE PO SCH ×2 (16:13→21:46)
[2023-10-25] MEDS ORDERED: PANTOPRAZOLE SODIUM 40 MG DR TABLET PO ONE (18:30)
[2023-10-25] MEDS: PREGABALIN 75 MG CAPSULE PO SCH (21:46)
[2023-10-25] MEDS: CARVEDILOL 3.125 MG TABLET PO SCH (21:46)
[2023-10-25] MEDS: MONTELUKAST SODIUM 10 MG TABLET PO SCH (21:46)
[2023-10-25] MEDS: DOCUSATE SODIUM 100 MG CAPSULE PO SCH (21:46)
[2023-10-25] MEDS: TraMADol HCL 50 MG TABLET PO PRN (21:59)
[2023-10-26] VITALS (8 sets, daily range): BP systolic 129–150; BP diastolic 52–69; PULSE 64–72; RESP 16–20; TEMP 97.8–98.9; O2SAT 99
[2023-10-26 01:26] LABS: GLUCOMETER DEV NAME(LOC) 5N.2C; GLUCOSE,POINT OF CARE 303 MG/DL (70-110)
[2023-10-26 01:26] LABS: GLUCOMETER DEV NAME(LOC) 5N.2C; GLUCOSE,POINT OF CARE 215 MG/DL (70-110)
[2023-10-26 01:26] LABS: GLUCOMETER DEV NAME(LOC) 5N.2C; GLUCOSE,POINT OF CARE 136 MG/DL (70-110)
[2023-10-26] MEDS: INSULIN LISPRO 100 UNITS/ML SQ PRN ×4 (06:37→22:55)
[2023-10-26] MEDS: IPRATROPIUM BROMIDE 0.5 MG/2.5 ML NEB SOLUTION NEB PRN (06:40)
[2023-10-26] MEDS: ALBUTEROL SULFATE 2.5 MG/0.5 ML NEB SOLUTION NEB PRN (06:40)
[2023-10-26 06:54] LABS: BASOPHILS % (AUTO) 0.2 % (0.0-2.0); EOSINOPHILS % (AUTO) 0 % (1.0-6.0); HEMATOCRIT 30.7 % (36-46); HEMOGLOBIN 10.4 g/dL (12.0-16.0); LYMPHOCYTES # (AUTO) 1.7 K/uL (1.0-4.8); LYMPHOCYTES % (AUTO) 15.6 % (22.0-44.0); MEAN CORPUSCULAR HGB CONC 33.8 G/dL (31.0-37.0); MEAN CORPUSCULAR VOLUME 83 fL (80-100); MONOCYTES # (AUTO) 0.9 K/uL (0.1-1.0); NEUTROPHILS # (AUTO) 8.2 K/uL (1.8-7.7); NEUTROPHILS % (AUTO) 76.2 % (40.0-70.0); PLATELET COUNT (AUTO) 250 K/uL (150-450); RED BLOOD CELL COUNT(AUTO) 3.71 MIL/uL (4.00-5.20); RED CELL DISTRIBUTION WIDTH 16.7 % (11.5-14.5); WHITE BLOOD COUNT (AUTO) 10.8 K/uL (4.5-11.0)
[2023-10-26 06:57] LABS: ANION GAP 9 mmol/L (8-16); CALCIUM, TOTAL 8.5 mg/dL (8.8-10.5); CARBON DIOXIDE 25 mmol/L (22-29); CHLORIDE 108 mmol/L (98-107); GLOMERULAR FILTR. RATE CALC > 60 mL/min (>60); GLUCOSE,RANDOM 143 mg/dL (70-110); POTASSIUM 3.7 mmol/L (3.5-5.1); SODIUM SERUM 142 mmol/L (136-145); UREA NITROGEN, BLOOD 9 mg/dL (7-18)
[2023-10-26 07:11] LABS: GLUCOMETER DEV NAME(LOC) 5N.2C; GLUCOSE,POINT OF CARE 153 MG/DL (70-110)
[2023-10-26] MEDS: HEPARIN SODIUM,PORCINE 5,000 UNITS/ML VIAL SQ SCH ×3 (08:00→16:00)
[2023-10-26] MEDS: FLUTICASONE/VILANTEROL 200-25 MCG/INH INHALER [14] IH SCH (08:29)
[2023-10-26] MEDS: PANTOPRAZOLE SODIUM 40 MG DR TABLET PO SCH (08:30)
[2023-10-26] MEDS: FUROSEMIDE 40 MG TABLET PO SCH (08:30)
[2023-10-26] MEDS: ASPIRIN 81 MG DR TABLET PO SCH (08:30)
[2023-10-26] MEDS: CHOLECALCIFEROL (VIT D3) 1,000 UNITS [25 MCG] TABLET PO SCH (08:30)
[2023-10-26] MEDS: CLOPIDOGREL BISULFATE 75 MG TABLET PO SCH (08:31)
[2023-10-26] MEDS: PREGABALIN 75 MG CAPSULE PO SCH ×2 (08:31→22:55)
[2023-10-26] MEDS: CARVEDILOL 3.125 MG TABLET PO SCH ×2 (08:31→22:56)
[2023-10-26] MEDS: DOCUSATE SODIUM 100 MG CAPSULE PO SCH ×3 (08:32→21:00)
[2023-10-26] MEDS: BENZONATATE 100 MG CAPSULE PO SCH ×3 (08:33→22:55)
[2023-10-26] MEDS ORDERED: ATORVASTATIN CALCIUM 40 MG TABLET PO SCH ×2 (09:00→21:00)
[2023-10-26] MEDS ORDERED: LEVOFLOXACIN 750 MG/D5% WATER 150 ML IV SCH (13:00)
[2023-10-26 17:31] LABS: GLUCOMETER DEV NAME(LOC) 5S.1B; GLUCOSE,POINT OF CARE 263 MG/DL (70-110)
[2023-10-26 22:37] LABS: GLUCOMETER DEV NAME(LOC) 5S.1B; GLUCOSE,POINT OF CARE 232 MG/DL (70-110)
[2023-10-26] MEDS: MONTELUKAST SODIUM 10 MG TABLET PO SCH (22:55)
[2023-10-27] MEDS: GuaiFENesin [SUGAR-FREE] 200 MG/10 ML SOLUTION UDCUP PO PRN ×2 (01:06→10:14)
[2023-10-27 01:52] LABS: GLUCOMETER DEV NAME(LOC) 5N.2C; GLUCOSE,POINT OF CARE 187 MG/DL (70-110)
[2023-10-27] MEDS: INSULIN LISPRO 100 UNITS/ML SQ PRN (06:38)
[2023-10-27 06:51] LABS: BASOPHILS % (AUTO) 0.6 % (0.0-2.0); EOSINOPHILS % (AUTO) 0 % (1.0-6.0); HEMATOCRIT 31.6 % (36-46); HEMOGLOBIN 10.9 g/dL (12.0-16.0); LYMPHOCYTES # (AUTO) 1.8 K/uL (1.0-4.8); LYMPHOCYTES % (AUTO) 19.3 % (22.0-44.0); MEAN CORPUSCULAR HEMOGLOBIN 28.4 pg (26.0-34.0); MEAN CORPUSCULAR HGB CONC 34.4 G/dL (31.0-37.0); MEAN CORPUSCULAR VOLUME 83 fL (80-100); MONOCYTES # (AUTO) 0.9 K/uL (0.1-1.0); MONOCYTES % (AUTO) 9.5 % (2.0-9.0); NEUTROPHILS # (AUTO) 6.4 K/uL (1.8-7.7); NEUTROPHILS % (AUTO) 70.6 % (40.0-70.0); PLATELET COUNT (AUTO) 270 K/uL (150-450); RED BLOOD CELL COUNT(AUTO) 3.83 MIL/uL (4.00-5.20); RED CELL DISTRIBUTION WIDTH 16.7 % (11.5-14.5); WHITE BLOOD COUNT (AUTO) 9.1 K/uL (4.5-11.0)
[2023-10-27 06:58] LABS: ANION GAP 8 mmol/L (8-16); CARBON DIOXIDE 28 mmol/L (22-29); CHLORIDE 105 mmol/L (98-107); CREATININE 0.86 mg/dL (0.60-1.30); GLOMERULAR FILTR. RATE CALC > 60 mL/min (>60); GLUCOSE,RANDOM 216 mg/dL (70-110); POTASSIUM 3.3 mmol/L (3.5-5.1); SODIUM SERUM 141 mmol/L (136-145); UREA NITROGEN, BLOOD 12 mg/dL (7-18)
[2023-10-27 07:16] VITALS: BP 150/57; PULSE 68; RESP 19; TEMP 98.1
[2023-10-27] MEDS: HEPARIN SODIUM,PORCINE 5,000 UNITS/ML VIAL SQ SCH ×2 (08:00)
[2023-10-27] MEDS: DOCUSATE SODIUM 100 MG CAPSULE PO SCH (09:00)
[2023-10-27] MEDS: CARVEDILOL 3.125 MG TABLET PO SCH (10:12)
[2023-10-27] MEDS: FLUTICASONE/VILANTEROL 200-25 MCG/INH INHALER [14] IH SCH (10:12)
[2023-10-27] MEDS: ASPIRIN 81 MG DR TABLET PO SCH (10:13)
[2023-10-27] MEDS: PREGABALIN 75 MG CAPSULE PO SCH (10:13)
[2023-10-27] MEDS: FUROSEMIDE 40 MG TABLET PO SCH (10:13)
[2023-10-27] MEDS: PANTOPRAZOLE SODIUM 40 MG DR TABLET PO SCH (10:13)
[2023-10-27] MEDS: BENZONATATE 100 MG CAPSULE PO SCH (10:14)
[2023-10-27] MEDS: CHOLECALCIFEROL (VIT D3) 1,000 UNITS [25 MCG] TABLET PO SCH (10:14)
[2023-10-27] MEDS: TraMADol HCL 50 MG TABLET PO PRN (10:15)
[2023-10-27] MEDS: CLOPIDOGREL BISULFATE 75 MG TABLET PO SCH (10:20)
[2023-10-27] MEDS ORDERED: GuaiFENesin [SUGAR-FREE] 200 MG/10 ML SOLUTION UDCUP PO PRN (10:45)
[2023-10-27] MEDS ORDERED: DOCUSATE SODIUM 250 MG CAPSULE PO PRN (10:45)
[2023-10-27] MEDS ORDERED: LORazepam 0.5 MG TABLET PO PRN (10:45)
[2023-10-27] MEDS ORDERED: NITROGLYCERIN 0.4 MG SUBLINGUAL TABLET #25 SL PRN (10:45)
[2023-10-27] MEDS ORDERED: HydrOXYzine HCL 10 MG TABLET PO PRN (10:45)
[2023-10-27] MEDS ORDERED: LEVO750T68 PO (10:46)
[2023-10-27] MEDS ORDERED: BENZONATATE 100 MG CAPSULE PO SCH (16:00)
[2023-10-27] MEDS ORDERED: HydrALAZINE HCL 10 MG TABLET PO SCH (16:00)
[2023-10-27] MEDS ORDERED: FERROUS SULFATE 325 MG EC TABLET PO SCH (18:00)
[2023-10-27] MEDS ORDERED: MetFORMIN HCL 500 MG TABLET PO SCH (18:00)
[2023-10-27] MEDS ORDERED: POTASSIUM CHLORIDE 10 MEQ ER TABLET PO SCH (21:00)
[2023-10-28 05:57] LABS: GLUCOMETER DEV NAME(LOC) 5N.2C; GLUCOSE,POINT OF CARE 264 MG/DL (70-110)
[2023-10-28] MEDS ORDERED: LINACLOTIDE 145 MCG CAPSULE PO SCH (06:30)
[2023-10-28] MEDS ORDERED: EMPAGLIFLOZIN 25 MG TABLET PO SCH (09:00)
[2023-10-28] MEDS ORDERED: FLUTICASONE PROPIONATE 50 MCG/SPRAY 16 GM NASAL SPRAY NASAL SCH (09:00)
[2023-10-28] MEDS ORDERED: PANTOPRAZOLE SODIUM 40 MG DR TABLET PO SCH (09:00)
[2023-10-28] MEDS ORDERED: AmLODIPine BESYLATE 5 MG TABLET PO SCH (09:00)
[2023-10-28] MEDS ORDERED: IRBESARTAN 150 MG TABLET PO SCH (09:00)
[2023-11-03] MEDS ORDERED: [UNRECOGNIZED DRUG - OTHER] SQ SCH (09:00)
== END 2023-10-27 11:30 | disposition home or self-care (01) | DRG 871 ==
LOC: EMS 18:16 → 5S 21:36
PROVIDERS: ADMIT Internal Medicine; ATTEND Internal Medicine
DX: A41.9 Sepsis, unspecified organism (principal); J18.9 Pneumonia, unspecified organism; J96.21 Acute and chronic respiratory failure with hypoxia; J44.0 Chronic obstructive pulmonary disease with (acute) lower respiratory infection; I11.0 Hypertensive heart disease with heart failure; E78.00 Pure hypercholesterolemia, unspecified; E11.9 Type 2 diabetes mellitus without complications; I50.9 Heart failure, unspecified; I25.10 Atherosclerotic heart disease of native coronary artery without angina pectoris; Z20.822 Contact with and (suspected) exposure to COVID-19; D64.9 Anemia, unspecified; Z79.84 Long term (current) use of oral hypoglycemic drugs; Z79.4 Long term (current) use of insulin; Z79.82 Long term (current) use of aspirin; Z79.899 Other long term (current) drug therapy; Z90.710 Acquired absence of both cervix and uterus; I25.2 Old myocardial infarction
CPT/HCPCS: 71045; 80048; 80053; 81001; 81002; 82962; 83605; 83880; 84145; 85025; 85610; 87040; 87086; 87186; 87804; 92610; 93005; 94640; 99291; J1644; J1940; J1956; J2405; J2543; J7030; J7050; Q9967; 36415-L1; 36415-TC; J7613

== ENCOUNTER → 2023-11-21 | Outpatient (CLI) | payer MEDICARE, OTHER ==
[~2023-11-21] MED LIST changes: -ALBU8.5H8 IH; -BUDE10.2 IH; -DOXY-354 PO; -FAMO20 PO; +FERR325T23 PO; +FLUT16SP NASAL; +HYDR-3831 PO; +LEVO750T68 PO; +METF-446 PO; -METF-81 PO; +NITR0.4T52 SL; +SEMA2PEN SQ; -TIOT4MIS2 IH
[2023-11-21 11:41] VITALS: BP 137/58; PULSE 81; RESP 17; TEMP 98.5; O2SAT 99
== END | disposition home or self-care (01) ==
LOC: SRCNTR 10:44
PROVIDERS: ATTEND Internal Medicine Pulmonary Disease
DX: I11.0 Hypertensive heart disease with heart failure (principal); I50.9 Heart failure, unspecified; E78.00 Pure hypercholesterolemia, unspecified; J44.9 Chronic obstructive pulmonary disease, unspecified; E11.9 Type 2 diabetes mellitus without complications; E66.01 Morbid (severe) obesity due to excess calories; I25.10 Atherosclerotic heart disease of native coronary artery without angina pectoris; Z95.5 Presence of coronary angioplasty implant and graft
CPT/HCPCS: G0463

== ENCOUNTER → 2023-11-23 | Outpatient (CLI) | payer MEDICARE, OTHER ==
[2023-11-23 14:59] LABS: BASOPHILS % (AUTO) 0.4 % (0.0-2.0); EOSINOPHILS % (AUTO) 0.1 % (1.0-6.0); HEMATOCRIT 37.4 % (36-46); HEMOGLOBIN 12.1 g/dL (12.0-16.0); LYMPHOCYTES # (AUTO) 2.4 K/uL (1.0-4.8); LYMPHOCYTES % (AUTO) 22.3 % (22.0-44.0); MEAN CORPUSCULAR HEMOGLOBIN 27.8 pg (26.0-34.0); MEAN CORPUSCULAR HGB CONC 32.5 G/dL (31.0-37.0); MEAN CORPUSCULAR VOLUME 86 fL (80-100); MONOCYTES # (AUTO) 0.7 K/uL (0.1-1.0); NEUTROPHILS # (AUTO) 7.5 K/uL (1.8-7.7); NEUTROPHILS % (AUTO) 70.2 % (40.0-70.0); PLATELET COUNT (AUTO) 274 K/uL (150-450); RED BLOOD CELL COUNT(AUTO) 4.36 MIL/uL (4.00-5.20); RED CELL DISTRIBUTION WIDTH 18.1 % (11.5-14.5); WHITE BLOOD COUNT (AUTO) 10.6 K/uL (4.5-11.0)
== END | disposition home or self-care (01) ==
LOC: LABMN 14:28
PROVIDERS: ATTEND Internal Medicine Pulmonary Disease
DX: J45.909 Unspecified asthma, uncomplicated (principal); J44.9 Chronic obstructive pulmonary disease, unspecified
CPT/HCPCS: 82785; 85025

== ENCOUNTER → 2023-11-27 | Outpatient (CLI) | payer MEDICARE, OTHER | END | disposition home or self-care (01) | LOC: RADMN 09:42 | PROVIDERS: ATTEND Internal Medicine Pulmonary Disease | DX: J44.9 Chronic obstructive pulmonary disease, unspecified (principal) | CPT/HCPCS: 71250 ==

== ENCOUNTER → 2024-01-08 | Outpatient (CLI) | payer MEDICARE, OTHER ==
[~2024-01-08] VITALS: Ht 152.4 cm; Wt 76.0 kg
[2024-01-08 11:31] VITALS: BP 138/58; PULSE 71; RESP 17; TEMP 98.9; O2SAT 97
== END | disposition home or self-care (01) ==
LOC: SRCNTR 10:59
PROVIDERS: ATTEND Internal Medicine Pulmonary Disease
DX: I11.0 Hypertensive heart disease with heart failure (principal); I50.9 Heart failure, unspecified; E78.00 Pure hypercholesterolemia, unspecified; E66.01 Morbid (severe) obesity due to excess calories; I25.10 Atherosclerotic heart disease of native coronary artery without angina pectoris; E11.9 Type 2 diabetes mellitus without complications; Z95.5 Presence of coronary angioplasty implant and graft
CPT/HCPCS: G0463

== ENCOUNTER → 2024-10-31 | Outpatient (CLI) | payer MEDICARE, OTHER ==
[~2024-10-31] MED LIST changes: +BUDE10.7 IH; -FURO40 PO; +FURO40TA6 PO; +GUAI100L96 PO; -GUAIF10 PO; -LEVO750T68 PO; +TIOT4MIS2 IH
== END | disposition home or self-care (01) ==
LOC: SRCNTR 10:41
PROVIDERS: ATTEND Internal Medicine Pulmonary Disease
DX: I11.0 Hypertensive heart disease with heart failure (principal); I50.32 Chronic diastolic (congestive) heart failure; E11.9 Type 2 diabetes mellitus without complications; E66.01 Morbid (severe) obesity due to excess calories; E78.00 Pure hypercholesterolemia, unspecified; I25.10 Atherosclerotic heart disease of native coronary artery without angina pectoris; J44.1 Chronic obstructive pulmonary disease with (acute) exacerbation; J45.901 Unspecified asthma with (acute) exacerbation; Z23 Encounter for immunization; Z76.0 Encounter for issue of repeat prescription; Z79.02 Long term (current) use of antithrombotics/antiplatelets; Z79.4 Long term (current) use of insulin; Z79.51 Long term (current) use of inhaled steroids; Z79.82 Long term (current) use of aspirin; Z79.84 Long term (current) use of oral hypoglycemic drugs; Z79.85 Long-term (current) use of injectable non-insulin antidiabetic drugs; Z79.899 Other long term (current) drug therapy; Z82.49 Family history of ischemic heart disease and other diseases of the circulatory system; Z83.3 Family history of diabetes mellitus; Z90.710 Acquired absence of both cervix and uterus
CPT/HCPCS: Q3014

== ENCOUNTER → 2024-12-11 | Outpatient (CLI) | payer MEDICARE, OTHER ==
[~2024-12-11] MED LIST changes: -LORA-999 PO; +LORA0.5T20 PO
[2024-12-11 11:16] VITALS: BP 140/60; PULSE 74; RESP 22; TEMP 98.1; O2SAT 94
== END | disposition home or self-care (01) ==
LOC: SRCNTR 10:34
PROVIDERS: ATTEND Internal Medicine Pulmonary Disease
DX: I11.0 Hypertensive heart disease with heart failure (principal); I50.32 Chronic diastolic (congestive) heart failure; E11.9 Type 2 diabetes mellitus without complications; E66.01 Morbid (severe) obesity due to excess calories; E78.00 Pure hypercholesterolemia, unspecified; I25.10 Atherosclerotic heart disease of native coronary artery without angina pectoris; J44.1 Chronic obstructive pulmonary disease with (acute) exacerbation; J45.901 Unspecified asthma with (acute) exacerbation; Z23 Encounter for immunization; Z76.0 Encounter for issue of repeat prescription; Z79.02 Long term (current) use of antithrombotics/antiplatelets; Z79.4 Long term (current) use of insulin; Z79.51 Long term (current) use of inhaled steroids; Z79.82 Long term (current) use of aspirin; Z79.84 Long term (current) use of oral hypoglycemic drugs; Z79.85 Long-term (current) use of injectable non-insulin antidiabetic drugs; Z79.899 Other long term (current) drug therapy; Z82.49 Family history of ischemic heart disease and other diseases of the circulatory system; Z83.3 Family history of diabetes mellitus; Z90.710 Acquired absence of both cervix and uterus
CPT/HCPCS: G0463; Z7500

== ENCOUNTER 2025-07-07 13:57 | Inpatient (IN) | payer MEDICARE, OTHER ==
[~2025-07-07] VITALS: Ht 149.9 cm; Wt 88.7 kg
[~2025-07-07 13:57] MED LIST changes: +ALBU0.8311 NEB; +ALBU18HF12 IH; -BUDE10.7 IH; +DUPI300P SQ; -EMPA25TA3 PO; +[UNRECOGNIZED DRUG - CODE] PO
[2025-07-07] MEDS ORDERED: TAMS0.4C94 PO (15:35)
[2025-07-07] MEDS ORDERED: LORA10TA7 PO (15:35)
[2025-07-07] MEDS ORDERED: GUAI100L41 PO (15:35)
[2025-07-07] MEDS ORDERED: [UNRECOGNIZED DRUG - CODE] PO (15:35)
[2025-07-07] MEDS ORDERED: KETO15CR2 TP (15:35)
[2025-07-07] MEDS ORDERED: FOLI-130 PO (15:35)
[2025-07-07] MEDS: FUROSEMIDE 40 MG/4 ML VIAL IVP ONE (15:41)
[2025-07-07] MEDS: IPRATROPIUM BROMIDE 0.5 MG/2.5 ML NEB SOLUTION NEB ONE (15:47)
[2025-07-07] MEDS: ALBUTEROL SULFATE 2.5 MG/0.5 ML NEB SOLUTION NEB ONE (15:47)
[2025-07-07 15:48] VITALS: PULSE 96; RESP 18; O2SAT 100
[2025-07-07 15:50] VITALS: PULSE 90; RESP 18; O2SAT 100
[2025-07-07 15:57] LABS: COVID AG,FIA SOURCE NASAL SWAB
[2025-07-07 16:01] LABS: PLATELET COUNT (AUTO) 329 K/uL (150-450); RED BLOOD CELL COUNT(AUTO) 3.62 MIL/uL (4.00-5.20); RED CELL DISTRIBUTION WIDTH 15.0 % (11.5-14.5); WHITE BLOOD COUNT (AUTO) 10.7 K/uL (4.5-11.0)
[2025-07-07 16:04] LABS: CALCIUM, TOTAL 8.7 mg/dL (8.8-10.5); CREATININE 1.06 mg/dL (0.60-1.30); GLOMERULAR FILTR. RATE CALC 51 mL/min (>60); GLUCOSE,RANDOM 209 mg/dL (70-110); SODIUM SERUM 138 mmol/L (136-145); UREA NITROGEN, BLOOD 33 mg/dL (7-18)
[2025-07-07 16:12] LABS: TROPONIN I-HIGH SENSITIVITY 19 ng/L (<51)
[2025-07-07 16:22] LABS: INFLUENZA TYPE A NEGATIVE FOR TYPE A (NEGATIVE); INFLUENZA TYPE B NEGATIVE FOR TYPE B (NEGATIVE)
[2025-07-07 16:25] LABS: SARS-COV2 (COVID) ANTIGEN,FIA Positive (Negative)
[2025-07-07] MEDS ORDERED: ONDANSETRON HCL 4 MG/2 ML VIAL IVP PRN (17:15)
[2025-07-07 18:08] LABS: APPEARANCE,URINE CLEAR (CLEAR); GLUCOSE, URINE (UA) NEGATIVE (NEGATIVE); LEUKOCYTE ESTERASE ,URINE NEGATIVE (NEGATIVE); NITRATE,URINE NEGATIVE (NEGATIVE); OCCULT BLOOD,URINE NEGATIVE (NEGATIVE); SPECIFIC GRAVITIY, URINE 1.006 (1.003-1.030)
[2025-07-07 18:16] LABS: SQUAMOUS EPITHELIAL CELL,UR Few /LPF (None Seen)
[2025-07-07 18:42] VITALS: BP 140/67; PULSE 86; RESP 20; TEMP 98; O2SAT 99
[2025-07-07] MEDS: DOCUSATE SODIUM 100 MG CAPSULE PO SCH (21:00)
[2025-07-07] MEDS ORDERED: DEXTROSE 50%-WATER 25 GM/50 ML SYRINGE IVP PRN (22:45)
[2025-07-07] MEDS ORDERED: ALBUTEROL SULFATE HFA 90 MCG/PUFF 8 GM INHALER IH PRN (22:45)
[2025-07-07] MEDS ORDERED: NITROGLYCERIN 0.4 MG SUBLINGUAL TABLET #25 SL PRN (22:45)
[2025-07-07] MEDS: INSULIN GLARGINE,HUM.REC.ANLOG 100 UNITS/ML SQ SCH (22:45)
[2025-07-07 23:28] VITALS: BP 137/54; PULSE 92; RESP 20; TEMP 98.2; O2SAT 100
[2025-07-08] VITALS (16 sets, daily range): BP systolic 101–128; BP diastolic 44–48; PULSE 80–91; RESP 19–22; TEMP 97.7–98.8; O2SAT 97–100
[2025-07-08 00:40] LABS: TROPONIN I-HIGH SENSITIVITY 16 ng/L (<51)
[2025-07-08] MEDS ORDERED: SODIUM CHLORIDE 0.9% 500 ML IV ONE ×2 (02:57→03:58)
[2025-07-08] MEDS: CefTRIAXone 1 GM/DEXTROSE 50 ML IV SCH (03:32)
[2025-07-08] MEDS: HEPARIN SODIUM,PORCINE 5,000 UNITS/ML VIAL SQ SCH (03:48)
[2025-07-08] MEDS: IPRATROPIUM BROMIDE 0.5 MG/2.5 ML NEB SOLUTION NEB PRN (03:54)
[2025-07-08] MEDS: ALBUTEROL SULFATE 2.5 MG/0.5 ML NEB SOLUTION NEB PRN (03:54)
[2025-07-08] MEDS: AZITHROMYCIN 500 MG/NS 250 ML IV SCH (04:08)
[2025-07-08] MEDS: REMDESIVIR 200 MG in SODIUM CHLORIDE 0.9% 250 ML IV ONE (05:00)
[2025-07-08] MEDS: LINACLOTIDE 145 MCG CAPSULE PO SCH (06:28)
[2025-07-08 06:55] LABS: CALCIUM, TOTAL 8.8 mg/dL (8.8-10.5); CREATININE 0.98 mg/dL (0.60-1.30); GLOMERULAR FILTR. RATE CALC 55.0 mL/min (>60); GLUCOSE,RANDOM 158.0 mg/dL (70-110); SODIUM SERUM 138.0 mmol/L (136-145); UREA NITROGEN, BLOOD 33.0 mg/dL (7-18)
[2025-07-08 07:04] LABS: TROPONIN I-HIGH SENSITIVITY 17 ng/L (<51)
[2025-07-08 07:05] LABS: PLATELET COUNT (AUTO) 359 K/uL (150-450); RED BLOOD CELL COUNT(AUTO) 3.97 MIL/uL (4.00-5.20); RED CELL DISTRIBUTION WIDTH 14.5 % (11.5-14.5); WHITE BLOOD COUNT (AUTO) 10.0 K/uL (4.5-11.0)
[2025-07-08 07:08] LABS: BAND NEUTROPHILS % (MANUAL) 0 % (0-5)
[2025-07-08] MEDS: INSULIN LISPRO 100 UNITS/ML SQ PRN (07:09)
[2025-07-08 07:10] LABS: GLUCOMETER DEV NAME(LOC) 5S.1D; GLUCOSE,POINT OF CARE 181 MG/DL (70-110)
[2025-07-08 07:31] LABS: LYMPHOCYTES % (MANUAL) 6 % (22-44); MONOCYTES % (MANUAL) 4 % (2-9); SEGMENTED NEUTROPHILS % 90 % (40-70)
[2025-07-08] MEDS ORDERED: [UNRECOGNIZED DRUG - OTHER] PO SCH (09:00)
[2025-07-08] MEDS: CLOPIDOGREL BISULFATE 75 MG TABLET PO SCH (09:05)
[2025-07-08] MEDS: FERROUS SULFATE 325 MG EC TABLET PO SCH (09:05)
[2025-07-08] MEDS: TAMSULOSIN HCL 0.4 MG CAPSULE PO SCH (09:05)
[2025-07-08] MEDS: ASPIRIN 81 MG DR TABLET PO SCH (09:06)
[2025-07-08] MEDS: PREGABALIN 75 MG CAPSULE PO SCH (09:06)
[2025-07-08] MEDS: FOLIC ACID 1 MG TABLET PO SCH (09:06)
[2025-07-08] MEDS: LORATADINE 10 MG TABLET PO SCH (09:06)
[2025-07-08] MEDS: PANTOPRAZOLE SODIUM 40 MG DR TABLET PO SCH (09:06)
[2025-07-08] MEDS: IRBESARTAN 150 MG TABLET PO SCH (09:07)
[2025-07-08] MEDS: CHOLECALCIFEROL (VIT D3) 1,000 UNITS [25 MCG] TABLET PO SCH (09:23)
[2025-07-08 12:50] LABS: GLUCOMETER DEV NAME(LOC) 5S.2D; GLUCOSE,POINT OF CARE 295 MG/DL (70-110)
[2025-07-08] MEDS: DEXAMETHASONE SOD PHOS 4 MG/ML VIAL IVP SCH (16:45)
[2025-07-08 18:20] LABS: GLUCOMETER DEV NAME(LOC) 5S.1D; GLUCOSE,POINT OF CARE 255 MG/DL (70-110)
[2025-07-08 18:26] LABS: GLUCOMETER DEV NAME(LOC) 5S.2D; GLUCOSE,POINT OF CARE 170 MG/DL (70-110)
[2025-07-08] MEDS: MONTELUKAST SODIUM 10 MG TABLET PO SCH (22:06)
[2025-07-08] MEDS: ATORVASTATIN CALCIUM 40 MG TABLET PO SCH (22:06)
[2025-07-08] MEDS: GuaiFENesin [SUGAR-FREE] 200 MG/10 ML SOLUTION UDCUP PO PRN (22:11)
[2025-07-09] VITALS (15 sets, daily range): BP systolic 117–120; BP diastolic 40–49; PULSE 77–96; RESP 18–20; TEMP 97.9–98.4; O2SAT 78–100
[2025-07-09] MEDS: MELATONIN 5 MG TABLET PO PRN (01:47)
[2025-07-09 05:21] LABS: GLUCOMETER DEV NAME(LOC) 5S.1D; GLUCOSE,POINT OF CARE 262 MG/DL (70-110)
[2025-07-09] MEDS: REMDESIVIR 100 MG in SODIUM CHLORIDE 0.9% 250 ML IV SCH (06:31)
[2025-07-09 07:41] LABS: ASPARTATE AMINOTRANSFERASE 17.0 U/L (15-37); CALCIUM, TOTAL 8.3 mg/dL (8.8-10.5); CREATININE 1.0 mg/dL (0.60-1.30); GLOMERULAR FILTR. RATE CALC 54.0 mL/min (>60); GLUCOSE,RANDOM 194.0 mg/dL (70-110); SODIUM SERUM 141.0 mmol/L (136-145); TOTAL PROTEIN, SERUM 6.4 g/dL (6.4-8.2); UREA NITROGEN, BLOOD 34.0 mg/dL (7-18)
[2025-07-09 21:55] LABS: GLUCOMETER DEV NAME(LOC) 5N.1D; GLUCOSE,POINT OF CARE 178 MG/DL (70-110)
[2025-07-09 21:55] LABS: GLUCOMETER DEV NAME(LOC) 5N.1D; GLUCOSE,POINT OF CARE 212 MG/DL (70-110)
[2025-07-09 21:56] LABS: GLUCOMETER DEV NAME(LOC) 5N.1D; GLUCOSE,POINT OF CARE 226 MG/DL (70-110)
[2025-07-09 21:56] LABS: GLUCOMETER DEV NAME(LOC) 5N.1D; GLUCOSE,POINT OF CARE 223 MG/DL (70-110)
[2025-07-09] MEDS: OxyCODONE HCL/ACETAMINOPHEN 5-325 MG TABLET PO PRN (22:26)
[2025-07-09] MEDS: ACETAMINOPHEN 325 MG TABLET PO PRN (22:33)
[2025-07-10] VITALS (13 sets, daily range): BP systolic 115–157; BP diastolic 46–65; PULSE 77–85; RESP 18–22; TEMP 97.7–98.4; O2SAT 95–100
[2025-07-10] MEDS ORDERED: SODIUM CHLORIDE 0.9% 250 ML IV ONE (03:06)
[2025-07-10 06:55] LABS: GLUCOMETER DEV NAME(LOC) 5S.1D; GLUCOSE,POINT OF CARE 142 MG/DL (70-110)
[2025-07-10 06:58] LABS: PLATELET COUNT (AUTO) 299 K/uL (150-450); RED BLOOD CELL COUNT(AUTO) 3.67 MIL/uL (4.00-5.20); RED CELL DISTRIBUTION WIDTH 15.0 % (11.5-14.5); WHITE BLOOD COUNT (AUTO) 19.6 K/uL (4.5-11.0)
[2025-07-10 12:20] LABS: GLUCOMETER DEV NAME(LOC) 5S.1D; GLUCOSE,POINT OF CARE 215 MG/DL (70-110)
[2025-07-10 13:19] LABS: ASPARTATE AMINOTRANSFERASE 17 U/L (15-37); CALCIUM, TOTAL 8.3 mg/dL (8.8-10.5); CREATININE 0.75 mg/dL (0.60-1.30); GLOMERULAR FILTR. RATE CALC > 60 mL/min (>60); GLUCOSE,RANDOM 132 mg/dL (70-110); SODIUM SERUM 142 mmol/L (136-145); TOTAL PROTEIN, SERUM 6.0 g/dL (6.4-8.2); UREA NITROGEN, BLOOD 29 mg/dL (7-18)
[2025-07-10 19:05] LABS: GLUCOMETER DEV NAME(LOC) 5N.1D; GLUCOSE,POINT OF CARE 224 MG/DL (70-110)
[2025-07-10] MEDS: BENZONATATE 100 MG CAPSULE PO SCH (20:46)
[2025-07-11] VITALS (15 sets, daily range): BP systolic 103–154; BP diastolic 45–62; PULSE 75–90; RESP 17–22; TEMP 97.7–98.2; O2SAT 90–100
[2025-07-11 01:15] LABS: GLUCOMETER DEV NAME(LOC) 5N.1D; GLUCOSE,POINT OF CARE 257 MG/DL (70-110)
[2025-07-11 05:32] LABS: PLATELET COUNT (AUTO) 282 K/uL (150-450); RED BLOOD CELL COUNT(AUTO) 3.82 MIL/uL (4.00-5.20); RED CELL DISTRIBUTION WIDTH 14.5 % (11.5-14.5); WHITE BLOOD COUNT (AUTO) 11.8 K/uL (4.5-11.0)
[2025-07-11 05:52] LABS: ASPARTATE AMINOTRANSFERASE 19.0 U/L (15-37); CALCIUM, TOTAL 8.3 mg/dL (8.8-10.5); CREATININE 1.04 mg/dL (0.60-1.30); GLOMERULAR FILTR. RATE CALC 52.0 mL/min (>60); GLUCOSE,RANDOM 137.0 mg/dL (70-110); SODIUM SERUM 141.0 mmol/L (136-145); TOTAL PROTEIN, SERUM 6.7 g/dL (6.4-8.2); UREA NITROGEN, BLOOD 29.0 mg/dL (7-18)
[2025-07-11 10:55] LABS: GLUCOMETER DEV NAME(LOC) 5S.1D; GLUCOSE,POINT OF CARE 147 MG/DL (70-110)
[2025-07-11 12:36] LABS: GLUCOMETER DEV NAME(LOC) 5N.1D; GLUCOSE,POINT OF CARE 215 MG/DL (70-110)
[2025-07-11] MEDS: BENZONATATE 100 MG CAPSULE PO SCH (18:12)
[2025-07-11 18:40] LABS: GLUCOMETER DEV NAME(LOC) 5S.1D; GLUCOSE,POINT OF CARE 298 MG/DL (70-110)
[2025-07-11] MEDS: HYDROCODONE/CHLORPHEN POLIS 10-8 MG/5 ML ORAL.SYG PO SCH (20:41)
[2025-07-11 22:15] LABS: GLUCOMETER DEV NAME(LOC) 5S.1D; GLUCOSE,POINT OF CARE 283 MG/DL (70-110)
[2025-07-12] VITALS (10 sets, daily range): BP systolic 108–150; BP diastolic 50–57; PULSE 72–97; RESP 18–20; TEMP 97.7–98.4; O2SAT 98–100
[2025-07-12 08:20] LABS: GLUCOMETER DEV NAME(LOC) 5S.2D; GLUCOSE,POINT OF CARE 140 MG/DL (70-110)
[2025-07-12] MEDS ORDERED: DEXA2 PO (12:43)
[2025-07-12] MEDS ORDERED: AMOX-457 PO (12:43)
[2025-07-12] MEDS ORDERED: HYDR473S62 PO (12:43)
[2025-07-12 17:06] LABS: GLUCOMETER DEV NAME(LOC) 5S.2D; GLUCOSE,POINT OF CARE 217 MG/DL (70-110)
== END 2025-07-12 13:45 | disposition home or self-care (01) | DRG 177 ==
LOC: EMS 13:57 → EDH 17:05 → 5S 18:19
PROVIDERS: ADMIT Internal Medicine; ATTEND Internal Medicine
PROC: XW033E5 Introduction of Remdesivir Anti-infective into Peripheral Vein, Percutaneous Approach, New Technology Group 5 (ICD-10-PCS; principal; 2025-07-08)
DX: U07.1 COVID-19 (principal); E43 Unspecified severe protein-calorie malnutrition; J12.82 Pneumonia due to coronavirus disease 2019; J96.21 Acute and chronic respiratory failure with hypoxia; J44.0 Chronic obstructive pulmonary disease with (acute) lower respiratory infection; J98.11 Atelectasis; E11.65 Type 2 diabetes mellitus with hyperglycemia; I50.9 Heart failure, unspecified; I11.0 Hypertensive heart disease with heart failure; R91.8 Other nonspecific abnormal finding of lung field; I25.10 Atherosclerotic heart disease of native coronary artery without angina pectoris; K74.60 Unspecified cirrhosis of liver; E78.00 Pure hypercholesterolemia, unspecified; Z87.440 Personal history of urinary (tract) infections; Z90.710 Acquired absence of both cervix and uterus; Z68.39 Body mass index [BMI] 39.0-39.9, adult; Z79.899 Other long term (current) drug therapy; I25.2 Old myocardial infarction; Z95.5 Presence of coronary angioplasty implant and graft
CPT/HCPCS: 71045; 71250; 80048; 80053; 81001; 82962; 83735; 83880; 84145; 84484; 85025; 87040; 87804; 93005; 93306; 94640; 94760; 96374; 96375; 97163; 97530; 99285; J0456; J0696; J1100; J1644; J1815; J1938; J2919; J3535; J7040; J7050; 36415-L1; 36415-TC; J7613